=== PATIENT | male | born 1990 | race Caucasian/White ===

== ENCOUNTER 2016-12-28 16:53 | Emergency (ER) | payer OTHER ==
[2016-12-28 17:28] VITALS: RESP 18
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
[2016-12-28 19:14] VITALS: BP 132/76; PULSE 87; TEMP 98.4
== END 2016-12-28 19:14 | disposition home or self-care (01) ==
LOC: EC 16:53
DX: S00.33XA Contusion of nose, initial encounter (principal); S83.91XA Sprain of unspecified site of right knee, initial encounter; Y04.0XXA Assault by unarmed brawl or fight, initial encounter; Z88.5 Allergy status to narcotic agent; Z88.8 Allergy status to other drugs, medicaments and biological substances; F17.200 Nicotine dependence, unspecified, uncomplicated
CPT/HCPCS: 70450; 70486; 99284

== ENCOUNTER 2017-05-22 02:13 | Emergency (ER) | payer OTHER ==
[2017-05-22 02:21] VITALS: BP 121/68; PULSE 77; RESP 18; TEMP 97.6
[2017-05-22] MEDS ORDERED: AMOXIC-POT CLAV 875MG STARTER 2 EACH TABLET PO STA (02:36)
[2017-05-22] MEDS ORDERED: IBUPROFEN 600 MG STARTER PACK 4 TAB BTL PO STA (02:36)
--- NOTE | 2017-05-22 02:43 | ED ---
General Adult HPI - General Chief complaint: Headache Time Seen by Provider: 05/22/17 02:32 Source: patient, RN notes reviewed Mode of arrival: ambulatory Limitations: no limitations - History of Present Illness Initial comments: 26-year-old male presents emergency Department chief complaint of sinus aches use. Patient states that he has had nasal congestion ear pain and sinus pain for the last 2 weeks. Patient states his sinus pressure seem to worse over the last week or so. Patient denies any nausea vomiting. Patient states that it radiates causing him to have a headache with this as well. Patient denies any neck pain. Patient denies any high fevers. Patient states that it just keeps getting worse he thought that he should be seen. Patient notes that now it just seems to be stopped. Achy it out. Patient states she was concerned due to his continued symptoms so he thought he should be evaluated.Patient denies any recent fever, chills, shortness of breath, chest pain, back pain, abdominal pain, nausea vomiting, numbness or tingling, dysuria or hematuria, constipation or diarrhea, visual changes, or any other current symptoms. - Related Data Previous Rx's Medication Instructions Recorded Amoxicillin/Potassium Clav 1 tab PO Q12HR #20 tab 05/22/17 [Augmentin 875-125 Tablet] Ibuprofen [Motrin] 600 mg PO Q6HR PRN #20 tab 05/22/17 Allergies Allergy/AdvReac Type Severity Reaction Status Date / Time amphetamine aspartate Allergy Unknown Verified 05/22/17 02:21 [From Adderall] amphetamine sulfate Allergy Unknown Verified 05/22/17 02:21 [From Adderall] codeine Allergy Unknown Verified 05/22/17 02:21 dextroamphetamine saccharate Allergy Unknown Verified 05/22/17 02:21 [From Adderall] dextroamphetamine sulfate Allergy Unknown Verified 05/22/17 02:21 [From Adderall] hydrocodone bitartrate Allergy Unknown Verified 05/22/17 02:21 [From Vicodin] ziprasidone HCl [From Geodon] Allergy Unknown Verified 05/22/17 02:21 ziprasidone mesylate Allergy Unknown Verified 05/22/17 02:21 [From Geodon] Review of Systems ROS Statement: Those systems with pertinent positive or pertinent negative responses have been documented in the HPI. ROS Other: All systems not noted in ROS Statement are negative. Past Medical History Past Medical History: Asthma, Osteoarthritis (OA) Additional Past Medical History / Comment(s): cerebral cyst, hypoglycemia dent in chest per pt History of Any Multi-Drug Resistant Organisms: None Reported Past Surgical History: No Surgical Hx Reported Past Psychological History: ADD/ADHD, Schizoaffective Disorder, Schizophrenia Smoking Status: Current every day smoker Past Alcohol Use History: Occasional Past Drug Use History: Marijuana General Exam - General Exam Comments Initial Comments: General exam: Alert, active, comfortable in no apparent distress Head: Normocephalic, tenderness along the maxillary sinuses Eyes: Normal reaction of pupils, equal size, normal range of extraocular motion Ears: normal external ear canals, pink tympanic membranes with normal cone of light Nose: clear with pink turbinates Throat: no erythema or exudates with normal sized tonsils Neck: no masses, no nuchal rigidity Chest: no chest wall deformity Lungs: equal air entry with no crackles or wheeze CVS: S1 and S2 normal with no audible mumurs, regular rhythm Abdomen: no hepatosplenomegaly, normal bowel sounds, no guarding or rigidity Spine: no scoliosis or deformity Skin: no rashes Neurological: No focal deficits, tone is normal in all 4 extremities Limitations: no limitations Course Vital Signs 05/22/17 02:19 Temperature 97.6 F Pulse Rate 77 Respiratory 18 Rate Blood Pressure 121/68 O2 Sat by Pulse 98 Oximetry Medical Decision Making - Medical Decision Making 26-year-old male presents to the emergency department with a chief complaint of sinusitis. This and the symptoms for approximately 2 weeks. This and was patient antibiotics. We discussed follow-up return parameters all patient's questions stated he understood and is in agreement discharged home. Disposition Clinical Impression: Acute sinusitis Disposition: HOME SELF-CARE Condition: Stable Instructions: Sinusitis (ED) Additional Instructions: Please use medication as discussed. Please follow up with family doctor if symptoms have not improved over the next two days. Please return to the emergency room if your symptoms increase or worsen or for any other concerns. Prescriptions: Amoxicillin/Potassium Clav [Augmentin 875-125 Tablet] 1 tab PO Q12HR #20 tab Ibuprofen [Motrin] 600 mg PO Q6HR PRN #20 tab PRN Reason: Pain Referrals: Jamila Aragon MD [STAFF PHYSICIAN] - 1-2 days Time of Disposition: 02:43
== END 2017-05-22 03:00 | disposition home or self-care (01) ==
LOC: EC 02:13
DX: J01.90 Acute sinusitis, unspecified (principal); F17.200 Nicotine dependence, unspecified, uncomplicated; Z88.8 Allergy status to other drugs, medicaments and biological substances; Z88.5 Allergy status to narcotic agent
CPT/HCPCS: 99283

== ENCOUNTER 2017-06-23 02:32 | Emergency (ER) | payer OTHER ==
[2017-06-23 02:43] VITALS: TEMP 98
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
--- NOTE | 2017-06-23 03:34 | XR ---
EXAM: XR Chest, 2 Views CLINICAL HISTORY: Reason: Chest Pain TECHNIQUE: Frontal and lateral views of the chest. COMPARISON: Chest radiograph 04/11/2016 FINDINGS: Lungs: Lungs are clear. Pleural space: Mild chronic biapical pleural thickening. No evidence of pleural effusion or pneumothorax. Heart: Heart size is within normal limits. Mediastinum: Mediastinal structures are unremarkable. Bones/joints: Imaged bony thorax is unremarkable. Other findings: No significant change since 04/11/2016. IMPRESSION: No evidence of active chest disease.
[2017-06-23 03:58] LABS: Basophils % (A) 1 %; CH 31.6; CHCM 36.2; Eosinophils # (A) 0.3 k/uL (0-0.7); Eosinophils % (A) 4 %; HCT 42.8 % (39.0-53.0); HDW 2.65; HGB 15.7 gm/dL (13.0-17.5); Luc # (Auto) 0.16; Luc % (Auto) 2; Lymphocytes # (A) 2.5 k/uL (1.0-4.8); Lymphocytes % (A) 29 %; MCH 32.2 pg (25.0-35.0); MCHC 36.7 g/dL (31.0-37.0); MCV 87.6 fL (80.0-100.0); Mean Platelet Volume 8.1; Monocytes # (A) 0.5 k/uL (0-1.0); Monocytes % (A) 6 %; Neutrophils # (A) 5.1 k/uL (1.3-7.7); Neutrophils % (A) 59 %; RBC 4.89 m/uL (4.30-5.90); RDW 12.8 % (11.5-15.5); WBC 8.6 k/uL (3.8-10.6); WBC (Perox) 8.28
[2017-06-23 04:09] LABS: ALT 30 U/L (21-72); AST 17 U/L (17-59); Alkaline Phosphatase 66 U/L (38-126); Anion Gap 11 mmol/L; Blood Urea Nitrogen 14 mg/dL (9-20); Calcium 9.5 mg/dL (8.4-10.2); Carbon Dioxide 21 mmol/L (22-30); Chloride 107 mmol/L (98-107); Glucose 86 mg/dL (74-99); INR 1.1 (<1.2); Non-African American GFR(MDRD) >60 (>60 ml/min/1.73 sqM); Partial Thromboplastin Time 30.5 sec (22.0-30.0); Potassium 4.1 mmol/L (3.5-5.1); Prothrombin Time 10.8 sec (9.0-12.0); Sodium 139 mmol/L (137-145); Total Bilirubin 0.3 mg/dL (0.2-1.3); Total Protein 6.6 g/dL (6.3-8.2)
[2017-06-23 04:17] LABS: Creatine Kinase 61 U/L (55-170)
[2017-06-23 04:30] LABS: Creatine Kinase MB 0.4 ng/mL (0.0-2.4); Troponin I <0.012 ng/mL (0.000-0.034)
[2017-06-23 05:02] VITALS: BP 108/58; PULSE 78; RESP 16
== END 2017-06-23 05:01 | disposition home or self-care (01) ==
LOC: EC 02:32
DX: R07.9 Chest pain, unspecified (principal); R06.02 Shortness of breath; R20.0 Anesthesia of skin; F17.200 Nicotine dependence, unspecified, uncomplicated; Z88.5 Allergy status to narcotic agent; Z88.8 Allergy status to other drugs, medicaments and biological substances
CPT/HCPCS: 36415; 71020; 80053; 82550; 82553; 83735; 84484; 85025; 85379; 85610; 85730; 93005; 99285

== ENCOUNTER 2018-12-24 21:46 | Emergency (ER) | payer OTHER ==
[2018-12-24 21:55] VITALS: BP 134/84; PULSE 73; RESP 20; TEMP 98.5
--- NOTE | 2018-12-24 22:58 | XR ---
EXAM: XR Left Foot Complete, 3 or More Views CLINICAL HISTORY: ITS.REASON XR Reason: Pain TECHNIQUE: Frontal, lateral and oblique views of the left foot. COMPARISON: None. FINDINGS: Bones/joints: Unremarkable. No acute fracture. No dislocation. Soft tissues: Unremarkable. No radiopaque foreign body. IMPRESSION: No acute osseous abnormality.
--- NOTE | 2018-12-24 23:20 | ED ---
Lower Extremity Injury HPI - General Source: patient, family, RN notes reviewed, old records reviewed Mode of arrival: ambulatory Limitations: no limitations <Debra Vargas - Last Filed: 12/25/18 05:16> <Saskia Lopez - Last Filed: 12/25/18 21:13> - General Chief Complaint: Extremity Injury, Lower Stated Complaint: Foot pain Time Seen by Provider: 12/24/18 22:00 - History of Present Illness Initial Comments: 28 year old male with L dorsum foot pain without injury. Patient states that he has pain with ambulation now. Patient reports marixa the may have landed wrong on his foot a few days ago. Sxs started 2 days ago. (Debra Vargas) - Related Data Home Medications Medication Instructions Recorded Confirmed Ibuprofen [Motrin Ib] 400 mg PO Q6H PRN 12/24/18 12/24/18 Previous Rx's Medication Instructions Recorded Ibuprofen [Motrin] 600 mg PO Q8HR PRN #20 tab 12/24/18 Allergies Allergy/AdvReac Type Severity Reaction Status Date / Time amphetamine aspartate Allergy Unknown Verified 12/24/18 22:20 [From Adderall] amphetamine sulfate Allergy Unknown Verified 12/24/18 22:20 [From Adderall] codeine Allergy Unknown Verified 12/24/18 22:20 dextroamphetamine saccharate Allergy Unknown Verified 12/24/18 22:20 [From Adderall] dextroamphetamine sulfate Allergy Unknown Verified 12/24/18 22:20 [From Adderall] hydrocodone bitartrate Allergy Unknown Verified 12/24/18 22:20 [From Vicodin] ziprasidone HCl [From Geodon] Allergy Unknown Verified 12/24/18 22:20 ziprasidone mesylate Allergy Unknown Verified 12/24/18 22:20 [From Geodon] acetaminophen [From Tylenol] AdvReac Unknown UPSET Verified 12/24/18 22:20 STOMACH Review of Systems ROS Other: All systems not noted in ROS Statement are negative. <Debra Vargas - Last Filed: 12/25/18 05:16> ROS Other: All systems not noted in ROS Statement are negative. <Saskia Lopez P - Last Filed: 12/25/18 21:13> ROS Statement: Those systems with pertinent positive or pertinent negative responses have been documented in the HPI. Past Medical History Past Medical History: Asthma, Osteoarthritis (OA) Additional Past Medical History / Comment(s): cerebral cyst, hypoglycemia, dent in chest per pt History of Any Multi-Drug Resistant Organisms: None Reported Past Surgical History: No Surgical Hx Reported Past Psychological History: ADD/ADHD, Depression, Schizoaffective Disorder, Schizophrenia Smoking Status: Current every day smoker Past Alcohol Use History: Occasional Past Drug Use History: Marijuana <Debra Vargas - Last Filed: 12/25/18 05:16> General Exam Limitations: no limitations General appearance: alert, in no apparent distress Head exam: Present: atraumatic, normocephalic, normal inspection ENT exam: Present: normal exam, mucous membranes moist Neck exam: Present: normal inspection. Absent: tenderness, meningismus, lymphadenopathy Respiratory exam: Present: normal lung sounds bilaterally. Absent: respiratory distress, wheezes, rales, rhonchi, stridor Cardiovascular Exam: Present: regular rate, normal rhythm, normal heart sounds. Absent: systolic murmur, diastolic murmur, rubs, gallop, clicks GI/Abdominal exam: Present: soft, normal bowel sounds. Absent: distended, tenderness, guarding, rebound, rigid Left Knee exam: Present: normal inspection, full ROM Lower Leg exam: Present: normal inspection, full ROM Ankle exam: Present: normal inspection, full ROM Foot/Toe exam: Present: normal inspection, full ROM Neurovascular tendon exam: Present: no vascular compromise Gait: observed and normal Neurological exam: Present: alert, oriented X3, CN II-XII intact <Debra Vargas - Last Filed: 12/25/18 05:16> <Saskia Lopez P - Last Filed: 12/25/18 21:13> - General Exam Comments Initial Comments: wlell appearing 28 year old male, no distress. (Debra Vargas) Vital Signs 12/24/18 21:50 Temperature 98.5 F Pulse Rate 73 Respiratory 20 Rate Blood Pressure 134/84 O2 Sat by Pulse 98 Oximetry Medical Decision Making - Radiology Data Radiology results: report reviewed <Debra Vargas - Last Filed: 12/25/18 05:16> <Saskia Lopez P - Last Filed: 12/25/18 21:13> - Medical Decision Making 28 year old male presents today with CC of L foot pain, no trauma. Patient pain is over dorsum of foot, normal pulses 2 plus and normal sensation distally. Pain in worse between 2-3 metatarsal. Patient advised likely strian muscle. Discussed patient shoudl use arch suppor and motrin for pain and ice. ( Debra Vargas) I was available for consultation in the emergency department. The history and physical exam were done by the Midlevel Provider. Medical decision making was done by the Midlevel Provider. The Midlevel Provider did not contact me for this patient's care. I was not directly involved in this patient's care. (Saskia Lopez) - Radiology Data Normal foot XR. (Debra Vargas) Disposition Is patient prescribed a controlled substance at d/c from ED?: No Time of Disposition: 23:19 <Debra Vargas - Last Filed: 12/25/18 05:16> <Saskia Lopez - Last Filed: 12/25/18 21:13> Clinical Impression: Foot pain, left Disposition: HOME SELF-CARE Condition: Good Instructions (If sedation given, give patient instructions): Foot Sprain (ED) Additional Instructions: Make sure that you have proper shoes with good arch support. Patient should take Motrin Tylenol for pain. Ice the top of the foot. Return to the emergency department if any alarming signs or symptoms occur. Prescriptions: Ibuprofen [Motrin] 600 mg PO Q8HR PRN #20 tab PRN Reason: Pain Referrals: None,Stated [Primary Care Provider] - 1-2 days Blake Sung DO [Doctor of Osteopathic Medicine] - 1-2 days
== END 2018-12-24 23:28 | disposition home or self-care (01) ==
LOC: EC 21:46
DX: M79.672 Pain in left foot (principal); F17.200 Nicotine dependence, unspecified, uncomplicated; Z88.5 Allergy status to narcotic agent; Z88.6 Allergy status to analgesic agent; Z88.8 Allergy status to other drugs, medicaments and biological substances
CPT/HCPCS: 99284

== ENCOUNTER 2019-03-27 | Emergency (ER) | payer OTHER ==
[2019-03-27 00:24] VITALS: BP 117/70; PULSE 84; RESP 18; TEMP 97.3
[2019-03-27] MEDS ORDERED: MORPHINE SULFATE 4 MG/ML SYRINGE IM STA (01:00)
[2019-03-27] MEDS ORDERED: KETOROLAC 30 MG/ML 1 ML VIAL IM STA (01:00)
[2019-03-27] MEDS ORDERED: DIAZEPAM 5 MG/ML 2 ML INJ IM ONE (01:00)
[2019-03-27] MEDS ORDERED: ACET/COD 300 MG/30 MG STARTER PACK 6 TAB BTL PO STA (01:01)
[2019-03-27] MEDS ORDERED: CYCLOBENZAPRINE 10MG STARTER 3 TAB BTL PO STA (01:01)
--- NOTE | 2019-03-27 01:02 | ED ---
Back Pain HPI - General Chief Complaint: Back Pain/Injury Stated Complaint: Rt hip/back pain Time Seen by Provider: 03/27/19 00:48 Source: patient Limitations: no limitations - History of Present Illness Initial Comments: 28-year-old male patient presents to the emergency department today for evaluation of increased low back pain. Patient states that he has chronic low back pain. States since Thursday he had worsening of the pain with radiation down the left buttock. Patient denies any new injury. Denies any numbness and tingling to the lower extremities. States his pain is consistent with his usual back pain exacerbations. Denies any saddle anesthesia or loss of bowel or bladder control. He denies any fever or chills. Denies any difficulty with ambulation. States he has been taking Tylenol without much relief. Patient denies any recent rash, shortness breath, chest pain, abdominal pain, nausea, vomiting, diarrhea, constipation, dizziness, weakness, hematuria, dysuria, urinary urgency, urinary frequency, headache, visual changes, or any other complaints. - Related Data Home Medications Medication Instructions Recorded Confirmed Ibuprofen [Motrin Ib] 400 mg PO Q6H PRN 12/24/18 12/24/18 Previous Rx's Medication Instructions Recorded Ibuprofen [Motrin] 600 mg PO Q8HR PRN #20 tab 12/24/18 Cyclobenzaprine [Flexeril] 10 mg PO TID #15 tab 03/27/19 Ibuprofen [Motrin] 600 mg PO Q8HR PRN #30 tab 03/27/19 Allergies Allergy/AdvReac Type Severity Reaction Status Date / Time amphetamine aspartate Allergy Unknown Verified 12/24/18 22:20 [From Adderall] amphetamine sulfate Allergy Unknown Verified 12/24/18 22:20 [From Adderall] codeine Allergy Unknown Verified 12/24/18 22:20 dextroamphetamine saccharate Allergy Unknown Verified 12/24/18 22:20 [From Adderall] dextroamphetamine sulfate Allergy Unknown Verified 12/24/18 22:20 [From Adderall] hydrocodone bitartrate Allergy Unknown Verified 12/24/18 22:20 [From Vicodin] ziprasidone HCl [From Geodon] Allergy Unknown Verified 12/24/18 22:20 ziprasidone mesylate Allergy Unknown Verified 12/24/18 22:20 [From Geodon] acetaminophen [From Tylenol] AdvReac Unknown UPSET Verified 12/24/18 22:20 STOMACH Review of Systems ROS Statement: Those systems with pertinent positive or pertinent negative responses have been documented in the HPI. ROS Other: All systems not noted in ROS Statement are negative. Past Medical History Past Medical History: Asthma, Osteoarthritis (OA) Additional Past Medical History / Comment(s): cerebral cyst, hypoglycemia, dent in chest per pt , degenerative disc disease. History of Any Multi-Drug Resistant Organisms: None Reported Past Surgical History: No Surgical Hx Reported Past Psychological History: ADD/ADHD, Depression, Schizoaffective Disorder, Schizophrenia Smoking Status: Current every day smoker Past Alcohol Use History: Occasional Past Drug Use History: Marijuana General Exam Limitations: no limitations General appearance: alert, in no apparent distress, other (This well-developed, well-nourished adult male patient in no acute distress. Vital signs upon presentation are temperature 97.3F, pulse 84, respirations 18, blood pressure 117/70, pulse ox 98% on room air.) Eye exam: Present: normal appearance, PERRL, EOMI. Absent: scleral icterus, conjunctival injection, periorbital swelling ENT exam: Present: normal exam, normal oropharynx, mucous membranes moist Respiratory exam: Present: normal lung sounds bilaterally. Absent: respiratory distress, wheezes, rales, rhonchi, stridor Cardiovascular Exam: Present: regular rate, normal rhythm, normal heart sounds. Absent: systolic murmur, diastolic murmur, rubs, gallop, clicks GI/Abdominal exam: Present: soft, normal bowel sounds. Absent: distended, tenderness, guarding, rebound, rigid Back exam: Present: normal inspection. Absent: vertebral tenderness Neurological exam: Present: alert, oriented X3, CN II-XII intact, other (Strength in all 4 child is 5/5.) Psychiatric exam: Present: normal affect, normal mood Skin exam: Present: warm, dry, intact, normal color. Absent: rash Course Vital Signs 03/27/19 00:17 Temperature 97.3 F L Pulse Rate 84 Respiratory 18 Rate Blood Pressure 117/70 O2 Sat by Pulse 98 Oximetry Medical Decision Making - Medical Decision Making 28-year-old male patient presents to the emergency department today for evaluation of increased low back pain. Patient states he does have history of chronic low back pain. States pain is in his mid back and radiates down the right buttock. Neurovascular status is intact. There is no concerning symptoms for cauda equina. Patient will be treated with muscle relaxer, anti- inflammatory medication, and given a starter pack of Tylenol for codeine. He is instructed to follow-up with his primary care physician for further evaluation and any further medications. He is instructed to follow-up in one to 2 days. Return parameters discussed in detail. He verbalizes understanding and agrees with this plan. Disposition Clinical Impression: Acute exacerbation of chronic low back pain Disposition: HOME SELF-CARE Condition: Good Instructions (If sedation given, give patient instructions): Acute Low Back Pain (ED) Additional Instructions: Perform gentle range of motion exercises. Alternate ice and heat to the painful areas. Take medications as directed. Follow-up through primary care physician for any further medications and for further evaluation. Return to the emergency department immediately for any new, worsening, or concerning symptoms. Prescriptions: Cyclobenzaprine [Flexeril] 10 mg PO TID #15 tab Ibuprofen [Motrin] 600 mg PO Q8HR PRN #30 tab PRN Reason: Pain Is patient prescribed a controlled substance at d/c from ED?: No Referrals: None,Stated [Primary Care Provider] - 1-2 days Time of Disposition: 01:02
== END 2019-03-27 01:22 | disposition home or self-care (01) ==
LOC: EC
DX: G89.29 Other chronic pain (principal); M54.5 Low back pain; M25.552 Pain in left hip; F17.200 Nicotine dependence, unspecified, uncomplicated; Z87.39 Personal history of other diseases of the musculoskeletal system and connective tissue; Z88.8 Allergy status to other drugs, medicaments and biological substances; Z88.5 Allergy status to narcotic agent; Z88.6 Allergy status to analgesic agent
CPT/HCPCS: 99283; 96372 ×3; J2270; J3360; J1885

== ENCOUNTER 2020-04-19 23:13 | Emergency (ER) | payer OTHER ==
[2020-04-19 23:19] VITALS: BP 149/78; PULSE 93; RESP 18; TEMP 98.1
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
--- NOTE | 2020-04-20 00:22 | XR ---
EXAMINATION TYPE: XR foot complete RT DATE OF EXAM: 04/19/2020 COMPARISON: NONE HISTORY: Pain TECHNIQUE: 3 views FINDINGS: Metatarsals are intact. I see no fracture nor dislocation. Joint spaces are normal. There a re no erosions. IMPRESSION: Negative right foot exam.
== END 2020-04-20 01:37 | disposition home or self-care (01) ==
LOC: EC 23:13
DX: M79.674 Pain in right toe(s) (principal); F17.200 Nicotine dependence, unspecified, uncomplicated; Z88.5 Allergy status to narcotic agent; Z88.8 Allergy status to other drugs, medicaments and biological substances; Z88.6 Allergy status to analgesic agent
CPT/HCPCS: 99283

== ENCOUNTER 2021-11-22 17:27 | Emergency (ER) | payer OTHER ==
[2021-11-22 18:54] VITALS: BP 108/71; PULSE 74; RESP 18; TEMP 97.5
[2021-11-22] MEDS ORDERED: BACITRACIN OINT 1 EACH PACKET TOPICAL ONE (19:29)
[2021-11-22] MEDS ORDERED: IBUPROFEN 600 MG TAB PO STA (19:29)
[2021-11-22] MEDS ORDERED: LIDOCAINE 1% INJ 10MG/ML (20 ML MDV) SQ ONE (19:29)
--- NOTE | 2021-11-22 19:34 | ED ---
Wound/Laceration HPI - General Chief Complaint: Wound/Laceration Stated Complaint: R hand lac. Time Seen by Provider: 11/22/21 19:08 Source: patient Mode of arrival: ambulatory Limitations: no limitations - History of Present Illness Initial Comments: 31 year-old male patient presents to the emergency department for evaluation of right thumb laceration. States he was cutting his dog's flea collar with a knife when he slipped and cut his finger. Denies any numbness or tingling to the finger. Denies difficulty with movement. Denies any other injuries. Tetanus up to date over the last 2-3 years. He does not take blood thinners. Does not have diabetes. - Related Data Home Medications Medication Instructions Recorded Confirmed Ibuprofen [Motrin Ib] 400 mg PO Q6H PRN 12/24/18 12/24/18 Previous Rx's Medication Instructions Recorded Ibuprofen [Motrin] 600 mg PO Q8HR PRN #20 tab 12/24/18 Cyclobenzaprine [Flexeril] 10 mg PO TID #15 tab 03/27/19 Ibuprofen [Motrin] 600 mg PO Q8HR PRN #30 tab 03/27/19 Allergies Allergy/AdvReac Type Severity Reaction Status Date / Time amphetamine aspartate Allergy Unknown Verified 04/19/20 23:19 [From Adderall] amphetamine sulfate Allergy Unknown Verified 04/19/20 23:19 [From Adderall] codeine Allergy Unknown Verified 04/19/20 23:19 dextroamphetamine saccharate Allergy Unknown Verified 04/19/20 23:19 [From Adderall] dextroamphetamine sulfate Allergy Unknown Verified 04/19/20 23:19 [From Adderall] hydrocodone bitartrate Allergy Unknown Verified 04/19/20 23:19 [From Vicodin] ziprasidone HCl [From Geodon] Allergy Unknown Verified 04/19/20 23:19 ziprasidone mesylate Allergy Unknown Verified 04/19/20 23:19 [From Geodon] acetaminophen [From Tylenol] AdvReac Unknown UPSET Verified 04/19/20 23:19 STOMACH Review of Systems ROS Statement: Those systems with pertinent positive or pertinent negative responses have been documented in the HPI. ROS Other: All systems not noted in ROS Statement are negative. Past Medical History Past Medical History: Asthma, Osteoarthritis (OA) Additional Past Medical History / Comment(s): cerebral cyst, hypoglycemia, dent in chest per pt , degenerative disc disease. History of Any Multi-Drug Resistant Organisms: None Reported Past Surgical History: No Surgical Hx Reported Past Psychological History: ADD/ADHD, Depression, Schizoaffective Disorder, Schizophrenia Smoking Status: Current every day smoker Past Alcohol Use History: Occasional Past Drug Use History: Marijuana General Exam Limitations: no limitations General appearance: alert, in no apparent distress, other (This is a well- developed, well-nourished adult male in no acute distress.) Respiratory exam: Present: normal lung sounds bilaterally. Absent: respiratory distress, wheezes, rales, rhonchi, stridor Cardiovascular Exam: Present: regular rate, normal rhythm, normal heart sounds. Absent: systolic murmur, diastolic murmur, rubs, gallop, clicks Extremities exam: Present: full ROM, normal capillary refill, other (There is 4 cm laceration noted to the right thumb. Extends from the dorsal aspect to the ventral. Skin is otherwise pink, warm, dry. Cap refill less than 3 seconds. Full range of motion intact.). Absent: tenderness, pedal edema, joint swelling, calf tenderness Neurological exam: Present: alert, oriented X3, CN II-XII intact Psychiatric exam: Present: normal affect, normal mood Skin exam: Present: warm, dry, intact, normal color. Absent: rash Course Vital Signs 11/22/21 18:48 Temperature 97.5 F L Pulse Rate 74 Respiratory 18 Rate Blood Pressure 108/71 O2 Sat by Pulse 98 Oximetry Procedures - Laceration Laceration #1 Consent Obtained: verbal consent Indication: laceration Site: hand (Right thumb) Size (cm): 5 Description: linear Depth: simple, single layer Anesthetic Used: lidocaine 1% Anesthesia Technique: local infiltration, nerve block Amount (mls): 6 Pre-repair: irrigated extensively Type of Sutures: nylon Size of Sutures: 5-0 Number of Sutures: 6 Technique: simple, interrupted Patient Tolerated Procedure: well, no complications Medical Decision Making - Medical Decision Making 31-year-old male patient presented for evaluation of right thumb laceration. Physical examination did reveal 5 cm laceration. Wound was repaired and cleanse as documented. X-ray was negative for any bony abnormality. We did discuss wound care center symptoms of infection, and suture removal. He is instructed follow up with his primary care physician as needed. Return parameters discussed in detail. He verbalizes understanding and agrees with this plan. My attending is Dr. Scherer. Disposition Clinical Impression: Laceration of right thumb Disposition: HOME SELF-CARE Condition: Good Instructions (If sedation given, give patient instructions): Care For Your Stitches (ED), Laceration (ED) Additional Instructions: Keep wound clean and dry. Cleanse twice daily with warm water and antibacterial soap. The initial dressing in place for 24 hours unless it becomes soaked. Return in 7 days to have the stitches removed. Follow-up with your primary care physician for recheck as needed. Return for any new, worsening, or concerning symptoms. Is patient prescribed a controlled substance at d/c from ED?: No Referrals: None,Stated [Primary Care Provider] - 1-2 days Time of Disposition: 21:29
--- NOTE | 2021-11-22 20:10 | XR ---
EXAMINATION TYPE: XR finger RT DATE OF EXAM: 11/22/2021 7:46 PM INDICATION: Patient age:Male; 31 years old; Reason for study: Thumb laceration/injury; [facility]. COMPARISON: None TECHNIQUE: 3 views of the right first digit were obtained. FINDINGS: Skin defect noted of the first digit palmar surface. No evidence for radiopaque foreign bod y the osseous structures are intact. IMPRESSION: Laceration/defect without evidence of radiopaque foreign body, no evidence of fracture.
== END 2021-11-22 21:44 | disposition home or self-care (01) ==
LOC: EC 17:27
DX: S61.011A Laceration without foreign body of right thumb without damage to nail, initial encounter (principal); J45.909 Unspecified asthma, uncomplicated; M19.90 Unspecified osteoarthritis, unspecified site; F32.A Depression, unspecified; F90.9 Attention-deficit hyperactivity disorder, unspecified type; F20.9 Schizophrenia, unspecified; F17.200 Nicotine dependence, unspecified, uncomplicated; F12.90 Cannabis use, unspecified, uncomplicated; Z72.89 Other problems related to lifestyle; W26.0XXA Contact with knife, initial encounter
CPT/HCPCS: 73140; 99283; 12042; J2001

== ENCOUNTER 2022-08-16 20:43 | Emergency (ER) | payer OTHER ==
[2022-08-16 21:14] VITALS: BP 122/81; PULSE 71; RESP 18; TEMP 97.8
[2022-08-17] MEDS ORDERED: METOCLOPRAMIDE 5 MG/ML 2 ML VIAL IVP STA (02:58)
[2022-08-17] MEDS ORDERED: SODIUM CHLORIDE 0.9% 1,000 ML IV STA (02:58)
[2022-08-17] MEDS ORDERED: diphenhydrAMINE 50 MG/ML 1 ML VIAL IVP STA (02:59)
--- NOTE | 2022-08-17 03:24 | ED ---
Headache HPI <Fortunato Degroot Gosia - Last Filed: 08/17/22 05:31> - General Source: RN notes reviewed Mode of arrival: ambulatory Limitations: no limitations - History of Present Illness MD Complaint: headache <Tha Murillo - Last Filed: 08/17/22 18:15> - General Chief Complaint: Headache Stated Complaint: Migraine,dizzy Time Seen by Provider: 08/17/22 02:51 - History of Present Illness Initial Comments: This is a pleasant 26-year-old male who comes to the emergency department complaining of a throbbing headache which is 8/10 in intensity. Patient states he does get recurrent headaches but usually they're only about 4 out of 10 in intensity. He states that this headache is been present for 2 days. It is associated with some nausea and vomiting as well. Patient also states this is out of the ordinary for his headaches. Patient has a history of an arachnoid cyst and apparently this is at risk to black cerebral spinal fluid. It sounds as if the patient has had neurology evaluation and was even offered ventriculoperitoneal shunts at one time. no fever or chills, no changes in vision or hearing, no sore throat or difficulty with speech, no neck pain, no chest pain or shortness of breath, no abdominal pain, no nausea or vomiting, no changes in urination or bowel movements, no numbness or tingling, no extremity pain, no skin rashes or lesions. Past medical, surgical, social, and family history reviewed. (Tha Murillo) - Related Data Home Medications Medication Instructions Recorded Confirmed Ibuprofen [Motrin Ib] 400 mg PO Q6H PRN 12/24/18 12/24/18 Previous Rx's Medication Instructions Recorded Ibuprofen [Motrin] 600 mg PO Q8HR PRN #20 tab 12/24/18 Cyclobenzaprine [Flexeril] 10 mg PO TID #15 tab 03/27/19 Ibuprofen [Motrin] 600 mg PO Q8HR PRN #30 tab 03/27/19 Allergies Allergy/AdvReac Type Severity Reaction Status Date / Time amphetamine aspartate Allergy Unknown Verified 08/16/22 21:14 [From Adderall] amphetamine sulfate Allergy Unknown Verified 08/16/22 21:14 [From Adderall] codeine Allergy Unknown Verified 08/16/22 21:14 dextroamphetamine saccharate Allergy Unknown Verified 08/16/22 21:14 [From Adderall] dextroamphetamine sulfate Allergy Unknown Verified 08/16/22 21:14 [From Adderall] hydrocodone bitartrate Allergy Unknown Verified 08/16/22 21:14 [From Vicodin] ziprasidone HCl [From Geodon] Allergy Unknown Verified 08/16/22 21:14 ziprasidone mesylate Allergy Unknown Verified 08/16/22 21:14 [From Geodon] acetaminophen [From Tylenol] AdvReac Unknown UPSET Verified 08/16/22 21:14 STOMACH Review of Systems ROS Other: All systems not noted in ROS Statement are negative. <Fortunato Degroot - Last Filed: 08/17/22 05:31> ROS Other: All systems not noted in ROS Statement are negative. <Tha Murillo - Last Filed: 08/17/22 18:15> ROS Statement: Those systems with pertinent positive or pertinent negative responses have been documented in the HPI. Past Medical History Past Medical History: Asthma, Osteoarthritis (OA) Additional Past Medical History / Comment(s): cerebral cyst, hypoglycemia, dent in chest per pt , degenerative disc disease, vertigo History of Any Multi-Drug Resistant Organisms: None Reported Past Surgical History: No Surgical Hx Reported Past Psychological History: ADD/ADHD, Depression, Schizoaffective Disorder, Schizophrenia Smoking Status: Current every day smoker Past Alcohol Use History: Occasional Past Drug Use History: Marijuana <Tha Murillo - Last Filed: 08/17/22 18:15> General Exam Limitations: no limitations General appearance: alert, in distress Head exam: Present: atraumatic, normocephalic, normal inspection Eye exam: Present: normal appearance, PERRL, EOMI. Absent: scleral icterus, conjunctival injection, periorbital swelling ENT exam: Present: normal exam, normal oropharynx, mucous membranes moist, TM's normal bilaterally, normal external ear exam. Absent: mucous membranes dry Neck exam: Present: normal inspection. Absent: tenderness, meningismus, lymphadenopathy Respiratory exam: Present: normal lung sounds bilaterally. Absent: respiratory distress, wheezes, rales, rhonchi, stridor Cardiovascular Exam: Present: regular rate, normal rhythm, normal heart sounds. Absent: systolic murmur, diastolic murmur, rubs, gallop, clicks GI/Abdominal exam: Present: soft. Absent: distended, tenderness, guarding, rebound, rigid Extremities exam: Present: normal inspection, full ROM, normal capillary refill. Absent: tenderness, pedal edema, joint swelling, calf tenderness Back exam: Present: normal inspection. Absent: rash noted Neurological exam: Present: alert, oriented X3, CN II-XII intact, normal gait. Absent: altered, abnormal gait, motor sensory deficit Expanded Patient oriented to: Present: person, place, time Speech: Present: fluid speech Cranial nerves: EOM's Intact: Normal, Gag Reflex: Normal, Tongue Deviation: Normal, Nystagmus: Normal, Facial Sensation: Normal, Facial Palsy with Forehead Movement: Normal, Facial Palsy without Forehead Movement: Normal Cerebellar function: Finger to Nose: Normal Motor strength exam: RUE: 5, LUE: 5, RLE: 5, LLE: 5 Eye Response: (4) open spontaneously Motor Response: (6) obeys commands Verbal Response: (5) oriented Melisa Total: 15 Psychiatric exam: Present: normal affect, normal mood Skin exam: Present: warm, dry, intact, normal color. Absent: rash <Tha Murillo - Last Filed: 08/17/22 18:15> - General Exam Comments Initial Comments: Patient appears to be in mild distress at time I'm seeing him. Cranial nerves II through XII are intact. Patient is alert and oriented 4. Does not appear to be ill or toxic. (Tha Murillo) Course Vital Signs 08/16/22 21:12 Temperature 97.8 F Pulse Rate 71 Respiratory 18 Rate Blood Pressure 122/81 O2 Sat by Pulse 98 Oximetry Medical Decision Making - Lab Data Result diagrams: 08/17/22 04:02 08/17/22 04:02 <Fortunato Degroot - Last Filed: 08/17/22 05:31> - Lab Data Result diagrams: 08/17/22 04:02 08/17/22 04:02 <Tha Murillo - Last Filed: 08/17/22 18:15> - Medical Decision Making I did review the patient's computed tomography scan from 2016. Patient did have a large arachnoid cyst in the area of the right frontal lobe at that time. Going to order a CT of the brain/CTA head and neck for further evaluation of the patient's symptomatology. We'll treat with antiemetics and Benadryl at this time. We'll consider pain medication however the patient has multiple sensitivities. Patient will be endorsed to the ED attending physician, Dr. Degroot, at 4 AM for further evaluation and disposition. Currently awaiting laboratory investigations and computed tomography scan. (Tha Murillo) - Lab Data Lab Results 08/17/22 08/17/22 Range/Units 04:02 04:02 WBC 11.2 H (3.8-10.6) k/uL RBC 4.93 (4.30-5.90) m/uL Hgb 14.9 (13.0-17.5) gm/dL Hct 42.4 (39.0-53.0) % MCV 85.9 (80.0-100.0) fL MCH 30.1 (25.0-35.0) pg MCHC 35.1 (31.0-37.0) g/dL RDW 12.9 (11.5-15.5) % Plt Count 259 (150-450) k/uL MPV 9.7 Neutrophils % 66 % Lymphocytes % 23 % Monocytes % 4 % Eosinophils % 5 % Basophils % 1 % Neutrophils # 7.4 (1.3-7.7) k/uL Lymphocytes # 2.6 (1.0-4.8) k/uL Monocytes # 0.4 (0-1.0) k/uL Eosinophils # 0.5 (0-0.7) k/uL Basophils # 0.1 (0-0.2) k/uL Sodium 138 (137-145) mmol/L Potassium 3.8 (3.5-5.1) mmol/L Chloride 104 (98-107) mmol/L Carbon Dioxide 25 (22-30) mmol/L Anion Gap 9 mmol/L BUN 9 (9-20) mg/dL Creatinine 0.72 (0.66-1.25) mg/dL Est GFR (CKD-EPI)AfAm >90 (>60 ml/min/1.73 sqM) Est GFR (CKD-EPI)NonAf >90 (>60 ml/min/1.73 sqM) Glucose 90 (74-99) mg/dL Calcium 9.0 (8.4-10.2) mg/dL Disposition Is patient prescribed a controlled substance at d/c from ED?: No <Fortunato Degroot - Last Filed: 08/17/22 05:31> <Tha Murillo - Last Filed: 08/17/22 18:15> Clinical Impression: Headache Disposition: HOME SELF-CARE Condition: Good Instructions (If sedation given, give patient instructions): Acute Headache (ED) Referrals: None,Stated [Primary Care Provider] - 1-2 days
[2022-08-17] MEDS ORDERED: LORazepam 2 MG/ML INJ IV STA (04:17)
[2022-08-17 04:21] LABS: Basophils # (A) 0.1 k/uL (0-0.2); Basophils % (A) 1 %; Eosinophils # (A) 0.5 k/uL (0-0.7); Eosinophils % (A) 5 %; HCT 42.4 % (39.0-53.0); HGB 14.9 gm/dL (13.0-17.5); Lymphocytes # (A) 2.6 k/uL (1.0-4.8); Lymphocytes % (A) 23 %; MCH 30.1 pg (25.0-35.0); MCHC 35.1 g/dL (31.0-37.0); MCV 85.9 fL (80.0-100.0); Mean Platelet Volume 9.7; Monocytes # (A) 0.4 k/uL (0-1.0); Monocytes % (A) 4 %; Neutrophils # (A) 7.4 k/uL (1.3-7.7); Neutrophils % (A) 66 %; Platelet Count 259 k/uL (150-450); RBC 4.93 m/uL (4.30-5.90); RDW 12.9 % (11.5-15.5); WBC 11.2 k/uL (3.8-10.6)
[2022-08-17 04:34] LABS: African American GFR (CKD) >90 (>60 ml/min/1.73 sqM); Anion Gap 9 mmol/L; Blood Urea Nitrogen 9 mg/dL (9-20); Carbon Dioxide 25 mmol/L (22-30); Chloride 104 mmol/L (98-107); Glucose 90 mg/dL (74-99); Non-African American GFR(CKD) >90 (>60 ml/min/1.73 sqM); Potassium 3.8 mmol/L (3.5-5.1); Sodium 138 mmol/L (137-145)
--- NOTE | 2022-08-17 05:19 | CT ---
EXAMINATION TYPE: CT brain wo con DATE OF EXAM: 08/17/2022 COMPARISON: 12/28/2016 HISTORY: headache hx of subarachnoid cyst CT DLP: 1135.9 mGycm Automated exposure control for dose reduction was used. Images of the brain obtained with no contrast. Ventricles have normal size. There is no mass effect or midline shift. No sign of intracranial hemorr laura. The calvarium is intact. There is large area of fluid density in the left posterior frontal lob e convexity. This measures 5 cm in width and 3 cm in thickness. No adjacent cerebral edema. This coul d be arachnoid cyst. IMPRESSION: Arachnoid cyst left posterior frontal lobe convexity with no change compared to the old exam. No acut e intracranial abnormality.
--- NOTE | 2022-08-17 05:23 | CT ---
EXAMINATION TYPE: CT angio head neck DATE OF EXAM: 08/17/2022 COMPARISON: None HISTORY: headache .hx of subarachnoid cyst CT DLP: 784.4 mGycm Automated exposure control for dose reduction was used. CONTRAST: Performed with IV Contrast, patient injected with 65 mL of Isovue 370. Images obtained from the aortic arch to the vertex of the brain with the IV contrast. There are Three -D postprocessed images. There is normal branching pattern of the great vessels on the aortic arch. There is bilateral arteria l flow in the subclavian arteries. There is arterial flow in the common internal and external carotid arteries bilaterally. There is wide patency of the carotid artery bifurcations. There is arterial fl ow in both vertebral arteries. There is arterial flow in the vertebral basilar artery system. Right v ertebral artery is larger than the left. There is no evidence of carotid or vertebral artery aneurysm or dissection. There is arterial flow in the anterior middle and posterior cerebral arteries bilaterally. No mass ef fect. No sign of intracranial aneurysm or neovascularity. There is normal enhancement of the venous s inuses. No evidence of intracranial arterial stenosis. IMPRESSION: Negative CT angiogram of the neck. Negative CT angiogram of the brain.
== END 2022-08-17 06:10 | disposition home or self-care (01) ==
LOC: EC 20:43
DX: R51.9 Headache, unspecified (principal); J45.909 Unspecified asthma, uncomplicated; F17.200 Nicotine dependence, unspecified, uncomplicated; Z88.8 Allergy status to other drugs, medicaments and biological substances; Z88.6 Allergy status to analgesic agent; Z88.3 Allergy status to other anti-infective agents
CPT/HCPCS: 36415; 80048; 85025; 70496; 70450; 70498; 99284; 96374; 96375; 96361; J2060; J1200; J2765; Q9967

== ENCOUNTER 2022-08-29 00:21 | Emergency (ER) | payer OTHER ==
[2022-08-29 00:31] VITALS: TEMP 98
[2022-08-29] MEDS ORDERED: ACETAMINOPHEN TAB 500 MG TAB PO STA (00:39)
[2022-08-29] MEDS ORDERED: IBUPROFEN 600 MG TAB PO STA (00:39)
--- NOTE | 2022-08-29 00:42 | ED ---
Skin/Abscess/FB HPI - General Chief complaint: Skin/Abscess/Foreign Body Stated complaint: Right Arm Pain Time Seen by Provider: 08/29/22 00:35 Source: patient, RN notes reviewed Mode of arrival: ambulatory - History of Present Illness Initial comments: This is a pleasant 31-year-old male who was seen here about 2 weeks ago and ended up having an IV in his right antecubital fossa. Patient states that over the last day he has had development of pain to the area. Patient states the pain is radiating both distally and proximally. No headache, no fever or chills, no changes in vision or hearing, no sore throat or difficulty with speech, no neck pain, no chest pain or shortness of breath, no abdominal pain, no nausea or vomiting, no changes in urination or bowel movements, no numbness or tingling, no skin rashes or lesions. Past medical, surgical, social, and family history reviewed. - Related Data Home Medications Medication Instructions Recorded Confirmed Ibuprofen [Motrin Ib] 400 mg PO Q6H PRN 12/24/18 12/24/18 Previous Rx's Medication Instructions Recorded Ibuprofen [Motrin] 600 mg PO Q8HR PRN #20 tab 12/24/18 Cyclobenzaprine [Flexeril] 10 mg PO TID #15 tab 03/27/19 Ibuprofen [Motrin] 600 mg PO Q8HR PRN #30 tab 03/27/19 Ibuprofen [Motrin] 600 mg PO Q8HR PRN #30 tab 08/29/22 Allergies Allergy/AdvReac Type Severity Reaction Status Date / Time amphetamine aspartate Allergy Unknown Verified 08/29/22 00:31 [From Adderall] amphetamine sulfate Allergy Unknown Verified 08/29/22 00:31 [From Adderall] codeine Allergy Unknown Verified 08/29/22 00:31 dextroamphetamine saccharate Allergy Unknown Verified 08/29/22 00:31 [From Adderall] dextroamphetamine sulfate Allergy Unknown Verified 08/29/22 00:31 [From Adderall] hydrocodone bitartrate Allergy Unknown Verified 08/29/22 00:31 [From Vicodin] ziprasidone HCl [From Geodon] Allergy Unknown Verified 08/29/22 00:31 ziprasidone mesylate Allergy Unknown Verified 08/29/22 00:31 [From Geodon] acetaminophen [From Tylenol] AdvReac Unknown UPSET Verified 08/29/22 00:31 STOMACH Review of Systems ROS Statement: Those systems with pertinent positive or pertinent negative responses have been documented in the HPI. ROS Other: All systems not noted in ROS Statement are negative. Past Medical History Past Medical History: Asthma, Osteoarthritis (OA) Additional Past Medical History / Comment(s): cerebral cyst, hypoglycemia, dent in chest per pt , degenerative disc disease, vertigo History of Any Multi-Drug Resistant Organisms: None Reported Past Surgical History: No Surgical Hx Reported Past Psychological History: ADD/ADHD, Depression, Schizoaffective Disorder, Schizophrenia Smoking Status: Current every day smoker Past Alcohol Use History: Occasional Past Drug Use History: Marijuana General Exam - General Exam Comments Initial Comments: Vital signs reviewed, patient does not appear to be ill or toxic. General appearance: alert, anxious Head exam: Present: atraumatic, normocephalic, normal inspection Eye exam: Present: normal appearance, PERRL, EOMI. Absent: scleral icterus, conjunctival injection, periorbital swelling ENT exam: Present: normal exam, mucous membranes moist Neck exam: Present: normal inspection, full ROM. Absent: tenderness, meningismus, lymphadenopathy Respiratory exam: Present: normal lung sounds bilaterally. Absent: respiratory distress, wheezes, rales, rhonchi, stridor Cardiovascular Exam: Present: regular rate, normal rhythm, normal heart sounds. Absent: systolic murmur, diastolic murmur, rubs, gallop, clicks GI/Abdominal exam: Present: soft. Absent: distended, tenderness, guarding, rebound, rigid Extremities exam: Present: full ROM, tenderness (Patient has tenderness in the right antecubital fossa with a palpable superficial cord consistent with superficial thrombophlebitis. No axillary adenopathy. No lymphangitis. No erythema), normal capillary refill. Absent: pedal edema, joint swelling, calf tenderness Back exam: Present: normal inspection Neurological exam: Present: alert, oriented X3, CN II-XII intact Psychiatric exam: Present: normal affect, normal mood Skin exam: Present: warm, dry, intact, normal color. Absent: rash, erythema Course Vital Signs 08/29/22 00:28 Temperature 98 F Pulse Rate 92 Respiratory 18 Rate Blood Pressure 131/79 O2 Sat by Pulse 99 Oximetry Medical Decision Making - Medical Decision Making Patient likely has superficial thrombophlebitis affecting the right upper extremity. Venous Doppler ordered. Ibuprofen, acetaminophen. Disposition Clinical Impression: Superficial thrombophlebitis Narrative: Superficial thrombus phlebitis, right upper extremity Disposition: HOME SELF-CARE Condition: Good Instructions (If sedation given, give patient instructions): Superficial Thrombophlebitis (ED) Additional Instructions: Elevate the affected arm when possible. Apply warm compresses for 10-15 minutes at a time 4 times daily.Follow-up with your regular physician as directed. Return to the ER immediately if any symptoms worsen, new symptoms arise, or any other problems develop. Is patient prescribed a controlled substance at d/c from ED?: No Referrals: None,Stated [Primary Care Provider] - 1-2 days Time of Disposition: 02:19
--- NOTE | 2022-08-29 02:00 | US ---
EXAM: US Duplex Right Upper Extremity Veins CLINICAL HISTORY: ITS.REASON US Reason: Right arm pain TECHNIQUE: Real-time duplex ultrasound scan of the right upper extremity veins integrating B-mode two-dimensional vascular structure, Doppler spectral analysis, color flow Doppler imaging and compression. COMPARISON: No relevant prior studies available. FINDINGS: Deep veins: Unremarkable. No DVT in the internal jugular, subclavian, axillary, or brachial veins. The veins demonstrate normal color flow, are normally compressible, with normal phasic flow and/or augmentation response. Superficial veins: Unremarkable. No thrombus in the visualized basilic and cephalic veins. Soft tissues: No acute findings. IMPRESSION: Normal right upper extremity duplex venous ultrasound.
[2022-08-29] MEDS ORDERED: IBUPROFEN 600 MG STARTER PACK 4 TAB BTL PO STA (02:18)
[2022-08-29 02:52] VITALS: BP 141/67; PULSE 78; RESP 15
== END 2022-08-29 02:52 | disposition home or self-care (01) ==
LOC: EC 00:21
DX: I80.8 Phlebitis and thrombophlebitis of other sites (principal); J45.909 Unspecified asthma, uncomplicated; M19.90 Unspecified osteoarthritis, unspecified site; F17.200 Nicotine dependence, unspecified, uncomplicated; F12.90 Cannabis use, unspecified, uncomplicated; Z88.8 Allergy status to other drugs, medicaments and biological substances; Z88.5 Allergy status to narcotic agent
CPT/HCPCS: 99283

== ENCOUNTER 2022-10-18 18:00 | Emergency (ER) | payer OTHER ==
[2022-10-18] MEDS ORDERED: DEXAMETHASONE SOD PHOSPHATE 10 MG/ML 1 ML VIAL IM STA (18:24)
[2022-10-18] MEDS ORDERED: KETOROLAC 15 MG/ML 1 ML VIAL IVP STA (18:24)
[2022-10-18] MEDS ORDERED: SODIUM CHLORIDE 0.9% 1,000 ML IV STA (18:24)
[2022-10-18] MEDS ORDERED: DEXAMETHASONE SOD PHOSPHATE 10 MG/ML 1 ML VIAL IVP STA (18:39)
[2022-10-18 18:49] LABS: Basophils # (A) 0.1 k/uL (0-0.2); Basophils % (A) 1 %; Eosinophils # (A) 0.3 k/uL (0-0.7); Eosinophils % (A) 4 %; HCT 43.8 % (39.0-53.0); HGB 16.1 gm/dL (13.0-17.5); Lymphocytes # (A) 1.5 k/uL (1.0-4.8); Lymphocytes % (A) 22 %; MCH 31.4 pg (25.0-35.0); MCHC 36.7 g/dL (31.0-37.0); MCV 85.5 fL (80.0-100.0); Mean Platelet Volume 9.3; Monocytes # (A) 0.4 k/uL (0-1.0); Monocytes % (A) 6 %; Neutrophils # (A) 4.5 k/uL (1.3-7.7); Neutrophils % (A) 66 %; Platelet Count 275 k/uL (150-450); RBC 5.12 m/uL (4.30-5.90); RDW 12.9 % (11.5-15.5); WBC 6.8 k/uL (3.8-10.6)
--- NOTE | 2022-10-18 18:49 | ED ---
General Adult HPI - General Chief complaint: Chest Pain Stated complaint: Chest pain, DANIELLA Time Seen by Provider: 10/18/22 18:17 Source: patient Mode of arrival: ambulatory Limitations: no limitations - History of Present Illness Initial comments: Patient is a 31-year-old male with history of asthma presenting with chief complaint chest pain. Patient states that for the past few days he has had a burning sensation in the chest. Patient indicates that his on either side of his sternum when pointing. States the pain worsens with breathing. He admits to some nausea. He has not taken any supportive treatment at home. He admits to smoking marijuana. No abdominal pain, palpitations, weakness, fever, chills, vomiting, cough, congestion, sore throat, headache, neck pain or stiffness, vision or hearing changes, dizziness. Pain does not shoot down the arm or up the neck. - Related Data Home Medications Medication Instructions Recorded Confirmed No Known Home Medications 10/18/22 10/18/22 Allergies Allergy/AdvReac Type Severity Reaction Status Date / Time amphetamine aspartate Allergy Unknown Verified 10/18/22 19:09 [From Adderall] amphetamine sulfate Allergy Unknown Verified 10/18/22 19:09 [From Adderall] codeine Allergy Unknown Verified 10/18/22 19:09 dextroamphetamine saccharate Allergy Unknown Verified 10/18/22 19:09 [From Adderall] dextroamphetamine sulfate Allergy Unknown Verified 10/18/22 19:09 [From Adderall] hydrocodone bitartrate Allergy Unknown Verified 10/18/22 19:09 [From Vicodin] ziprasidone HCl [From Geodon] Allergy Unknown Verified 10/18/22 19:09 ziprasidone mesylate Allergy Unknown Verified 10/18/22 19:09 [From Geodon] acetaminophen [From Tylenol] AdvReac Unknown UPSET Verified 10/18/22 19:09 STOMACH Review of Systems ROS Statement: Those systems with pertinent positive or pertinent negative responses have been documented in the HPI. ROS Other: All systems not noted in ROS Statement are negative. Past Medical History Past Medical History: Asthma, Osteoarthritis (OA) Additional Past Medical History / Comment(s): cerebral cyst, hypoglycemia, dent in chest per pt , degenerative disc disease, vertigo History of Any Multi-Drug Resistant Organisms: None Reported Past Surgical History: No Surgical Hx Reported Past Psychological History: ADD/ADHD, Depression, Schizoaffective Disorder, Schizophrenia Smoking Status: Current every day smoker, Vaper Past Alcohol Use History: Occasional Past Drug Use History: Marijuana General Exam Limitations: no limitations General appearance: alert, in no apparent distress Head exam: Present: atraumatic, normocephalic, normal inspection Eye exam: Present: normal appearance Respiratory exam: Present: normal lung sounds bilaterally, chest wall tenderness. Absent: respiratory distress, wheezes, rales, rhonchi, stridor Cardiovascular Exam: Present: regular rate, normal rhythm, normal heart sounds. Absent: systolic murmur, diastolic murmur, rubs, gallop, clicks Neurological exam: Present: alert, oriented X3, CN II-XII intact Psychiatric exam: Present: normal affect, normal mood Skin exam: Present: warm, dry, intact, normal color. Absent: rash Course Vital Signs 10/18/22 10/18/22 10/18/22 18:12 18:45 20:16 Temperature 98 F 98.5 F Pulse Rate 72 75 Pulse Rate [ 80 Pipefitter ] Respiratory 18 20 Rate Blood Pressure 116/67 120/72 O2 Sat by Pulse 98 99 Oximetry EKG Findings - EKG Comments: EKG Findings:: Sinus rhythm ventricular rate 73. ND interval 176. QRS 88. QT 366. QTC 392. No ischemic changes. EKG interpreted by myself and my attending Medical Decision Making - Medical Decision Making Patient is a 31-year-old male presenting with chief complaint of chest pain. Patient states that he has had burning chest pain on either side of the sternum with a past 3 days. On examination the pain is reproducible. Patient states that the pain is worse with deep breaths. Heart and lungs are clear to auscultation. Lab work shows no leukocytosis or anemia. Coags are WNL. Troponin is less than 0.012. Sodium 136. Chloride 108. Remainder of CMP is negative. Amylase and lipase are WNL. He is negative for coronavirus influenza A and B. Chest x-ray shows no acute process, this is confirmed by my interpretation. EKG shows no ischemic changes. Patient responded well to Toradol and Decadron. Pain is likely due to costochondritis. Educated on supportive treatment at home with NSAIDs and he and ice when needed. Emphasized the importance of rest. Follow-up with PCP. Report back to ER with any new or worsening symptoms. Discussed return parameters and answered all questions. Patient conveyed verbal understanding and agreed to the plan. I discussed this case in detail with my attending Dr. Schrader - Lab Data Result diagrams: 10/18/22 18:38 10/18/22 18:38 Lab Results 10/18/22 10/18/22 10/18/22 Range/Units 18:38 18:38 18:38 WBC 6.8 (3.8-10.6) k/uL RBC 5.12 (4.30-5.90) m/uL Hgb 16.1 (13.0-17.5) gm/dL Hct 43.8 (39.0-53.0) % MCV 85.5 (80.0-100.0) fL MCH 31.4 (25.0-35.0) pg MCHC 36.7 (31.0-37.0) g/dL RDW 12.9 (11.5-15.5) % Plt Count 275 (150-450) k/uL MPV 9.3 Neutrophils % 66 % Lymphocytes % 22 % Monocytes % 6 % Eosinophils % 4 % Basophils % 1 % Neutrophils # 4.5 (1.3-7.7) k/uL Lymphocytes # 1.5 (1.0-4.8) k/uL Monocytes # 0.4 (0-1.0) k/uL Eosinophils # 0.3 (0-0.7) k/uL Basophils # 0.1 (0-0.2) k/uL PT 10.4 (9.0-12.0) sec INR 1.0 (<1.2) APTT 27.0 (22.0-30.0) sec Sodium 136 L (137-145) mmol/L Potassium 4.3 (3.5-5.1) mmol/L Chloride 108 H (98-107) mmol/L Carbon Dioxide 22 (22-30) mmol/L Anion Gap 6 mmol/L BUN 9 (9-20) mg/dL Creatinine 0.75 (0.66-1.25) mg/dL Est GFR (CKD-EPI)AfAm >90 (>60 ml/min/1.73 sqM) Est GFR (CKD-EPI)NonAf >90 (>60 ml/min/1.73 sqM) Glucose 93 (74-99) mg/dL Calcium 9.1 (8.4-10.2) mg/dL Magnesium 2.1 (1.6-2.3) mg/dL Total Bilirubin 0.5 (0.2-1.3) mg/dL AST 17 (17-59) U/L ALT 16 (4-49) U/L Alkaline Phosphatase 70 (38-126) U/L Troponin I (0.000-0.034) ng/mL Total Protein 6.6 (6.3-8.2) g/dL Albumin 4.1 (3.5-5.0) g/dL Amylase 56 (30-110) U/L Lipase 48 (23-300) U/L Coronavirus (PCR) (Not Detectd) Influenza Type A RNA (Not Detectd) Influenza Type B (PCR) (Not Detectd) 10/18/22 10/18/22 10/18/22 Range/Units 18:38 18:38 18:38 WBC (3.8-10.6) k/uL RBC (4.30-5.90) m/uL Hgb (13.0-17.5) gm/dL Hct (39.0-53.0) % MCV (80.0-100.0) fL MCH (25.0-35.0) pg MCHC (31.0-37.0) g/dL RDW (11.5-15.5) % Plt Count (150-450) k/uL MPV Neutrophils % % Lymphocytes % % Monocytes % % Eosinophils % % Basophils % % Neutrophils # (1.3-7.7) k/uL Lymphocytes # (1.0-4.8) k/uL Monocytes # (0-1.0) k/uL Eosinophils # (0-0.7) k/uL Basophils # (0-0.2) k/uL PT (9.0-12.0) sec INR (<1.2) APTT (22.0-30.0) sec Sodium (137-145) mmol/L Potassium (3.5-5.1) mmol/L Chloride (98-107) mmol/L Carbon Dioxide (22-30) mmol/L Anion Gap mmol/L BUN (9-20) mg/dL Creatinine (0.66-1.25) mg/dL Est GFR (CKD-EPI)AfAm (>60 ml/min/1.73 sqM) Est GFR (CKD-EPI)NonAf (>60 ml/min/1.73 sqM) Glucose (74-99) mg/dL Calcium (8.4-10.2) mg/dL Magnesium (1.6-2.3) mg/dL Total Bilirubin (0.2-1.3) mg/dL AST (17-59) U/L ALT (4-49) U/L Alkaline Phosphatase (38-126) U/L Troponin I <0.012 (0.000-0.034) ng/mL Total Protein (6.3-8.2) g/dL Albumin (3.5-5.0) g/dL Amylase (30-110) U/L Lipase (23-300) U/L Coronavirus (PCR) Not Detected (Not Detectd) Influenza Type A RNA Not Detected (Not Detectd) Influenza Type B (PCR) Not Detected (Not Detectd) Disposition Clinical Impression: Costochondral chest pain Disposition: HOME SELF-CARE Condition: Good Instructions (If sedation given, give patient instructions): Chest Pain (ED), Costochondritis (ED) Additional Instructions: All of with PCP. Report back to ER with any new or worsening symptoms. Alternate Motrin and Tylenol as needed for pain control. Rest and utilize hot and cold packs as needed. Is patient prescribed a controlled substance at d/c from ED?: No Referrals: None,Stated [Primary Care Provider] - 1-2 days Time of Disposition: 20:05
[2022-10-18 19:04] LABS: Prothrombin Time 10.4 sec (9.0-12.0)
--- NOTE | 2022-10-18 19:10 | XR ---
EXAMINATION TYPE: XR chest 2V DATE OF EXAM: 10/18/2022 6:58 PM COMPARISON: Chest x-ray 06/23/2017 TECHNIQUE: XR chest 2V . CLINICAL INDICATION:Male, 31 years old with history of Chest Pain; FINDINGS: Lungs/Pleura: There is no evidence of pleural effusion, focal consolidation, or pneumothorax. Pulmonary vascularity: Unremarkable. Heart/mediastinum: Cardiomediastinal silhouette is unremarkable. Musculoskeletal: No acute osseous pathology. IMPRESSION: No acute cardiopulmonary disease/process.
[2022-10-18 19:17] LABS: ALT 16 U/L (4-49); AST 17 U/L (17-59); African American GFR (CKD) >90 (>60 ml/min/1.73 sqM); Albumin 4.1 g/dL (3.5-5.0); Alkaline Phosphatase 70 U/L (38-126); Amylase 56 U/L (30-110); Anion Gap 6 mmol/L; Blood Urea Nitrogen 9 mg/dL (9-20); Calcium 9.1 mg/dL (8.4-10.2); Carbon Dioxide 22 mmol/L (22-30); Chloride 108 mmol/L (98-107); Glucose 93 mg/dL (74-99); Lipase 48 U/L (23-300); Magnesium 2.1 mg/dL (1.6-2.3); Non-African American GFR(CKD) >90 (>60 ml/min/1.73 sqM); Potassium 4.3 mmol/L (3.5-5.1); Sodium 136 mmol/L (137-145); Total Bilirubin 0.5 mg/dL (0.2-1.3); Total Protein 6.6 g/dL (6.3-8.2)
[2022-10-18] MEDS ORDERED: MAG HYDROX/AL HYDROX/SIMETH 30 ML, HYOSCYAMINE ELIXIR 10 ML, LIDOCAINE VISCOUS 2% 10 ML PO STA ×3 (19:48)
[2022-10-18 20:32] VITALS: BP 120/72; PULSE 75; RESP 20; TEMP 98.5
== END 2022-10-18 20:16 | disposition home or self-care (01) ==
LOC: EC 18:00
DX: R07.89 Other chest pain (principal); J45.909 Unspecified asthma, uncomplicated; F90.9 Attention-deficit hyperactivity disorder, unspecified type; F32.A Depression, unspecified; F17.290 Nicotine dependence, other tobacco product, uncomplicated; F17.200 Nicotine dependence, unspecified, uncomplicated; F12.90 Cannabis use, unspecified, uncomplicated; Z88.5 Allergy status to narcotic agent; Z88.8 Allergy status to other drugs, medicaments and biological substances; Z88.6 Allergy status to analgesic agent; Z20.822 Contact with and (suspected) exposure to COVID-19
CPT/HCPCS: 36415; 80053; 82150; 83690; 83735; 84484; 85025; 85610; 85730; 87502; 87635; 71046; 99285; 96374; 96375; 96361; J1100; J1885; 93005

== ENCOUNTER → 2023-01-22 | Outpatient (CLI) | payer OTHER ==
[2023-01-23 14:26] LABS: Cryptosporidium Antigen Negative (Negative)
== END | disposition home or self-care (01) ==
LOC: LABWHC1 14:05
PROVIDERS: ATTEND Family Medicine
DX: K52.9 Noninfective gastroenteritis and colitis, unspecified (principal)
CPT/HCPCS: 36415; 82272; 87045; 87046; 87328; 87329; 87425

== ENCOUNTER 2023-01-23 17:45 | Emergency (ER) | payer OTHER ==
[2023-01-23 18:33] VITALS: TEMP 98.5
[2023-01-23] MEDS ORDERED: KETOROLAC 15 MG/ML 1 ML VIAL IVP STA (19:38)
--- NOTE | 2023-01-23 19:42 | ED ---
General Adult HPI - General Chief complaint: Recheck/Abnormal Lab/Rx Stated complaint: abn labs Time Seen by Provider: 01/23/23 19:30 Source: patient, RN notes reviewed, old records reviewed Mode of arrival: ambulatory Limitations: no limitations - History of Present Illness Initial comments: this is a nontoxic-appearing 52-year-old male who presents alert and oriented 4, states was sent by Dr. Wyman his primary care doctor for reevaluation of CBC that showed an elevated white blood cell count of 21,000. -: month(s) Location: abdomen Severity scale (1-10): 4 Quality: stabbing Consistency: intermittent, now resolved - Related Data Home Medications Medication Instructions Recorded Confirmed No Known Home Medications 10/18/22 12/24/22 Allergies Allergy/AdvReac Type Severity Reaction Status Date / Time amphetamine aspartate Allergy Unknown Verified 01/23/23 18:33 [From Adderall] amphetamine sulfate Allergy Unknown Verified 01/23/23 18:33 [From Adderall] codeine Allergy Unknown Verified 01/23/23 18:33 dextroamphetamine saccharate Allergy Unknown Verified 01/23/23 18:33 [From Adderall] dextroamphetamine sulfate Allergy Unknown Verified 01/23/23 18:33 [From Adderall] hydrocodone bitartrate Allergy Unknown Verified 01/23/23 18:33 [From Vicodin] ziprasidone HCl [From Geodon] Allergy Unknown Verified 01/23/23 18:33 ziprasidone mesylate Allergy Unknown Verified 01/23/23 18:33 [From Geodon] acetaminophen [From Tylenol] AdvReac Unknown UPSET Verified 01/23/23 18:33 STOMACH Review of Systems ROS Statement: Those systems with pertinent positive or pertinent negative responses have been documented in the HPI. ROS Other: All systems not noted in ROS Statement are negative. Past Medical History Past Medical History: Asthma, Osteoarthritis (OA) Additional Past Medical History / Comment(s): cerebral cyst, hypoglycemia, dent in chest per pt , degenerative disc disease, vertigo History of Any Multi-Drug Resistant Organisms: None Reported Past Surgical History: No Surgical Hx Reported Past Psychological History: ADD/ADHD, Depression, Schizoaffective Disorder, Schizophrenia Smoking Status: Current every day smoker, Vaper Past Alcohol Use History: Occasional Past Drug Use History: Marijuana General Exam Limitations: no limitations General appearance: alert, in no apparent distress Head exam: Present: atraumatic, normocephalic Eye exam: Present: normal appearance. Absent: scleral icterus, conjunctival injection, periorbital swelling, periorbital tenderness ENT exam: Present: normal oropharynx, mucous membranes moist Neck exam: Present: full ROM. Absent: tenderness, meningismus, lymphadenopathy Respiratory exam: Absent: respiratory distress, accessory muscle use Cardiovascular Exam: Present: regular rate GI/Abdominal exam: Present: soft. Absent: distended, tenderness, guarding, rebound, rigid Extremities exam: Present: full ROM, normal capillary refill. Absent: pedal edema Neurological exam: Present: alert, oriented X3 Psychiatric exam: Present: normal affect, normal mood Skin exam: Present: warm, dry, normal color. Absent: cyanosis, diaphoretic, petechiae, pallor Course Vital Signs 01/23/23 01/23/23 18:31 22:04 Temperature 98.5 F Pulse Rate 81 57 L Respiratory 20 16 Rate Blood Pressure 127/69 136/93 O2 Sat by Pulse 97 98 Oximetry Medical Decision Making - Medical Decision Making Patient was sent by Dr. Wyman for elevated white blood cell count of 21. abdomen soft and nontender. Patient has no other complaints at this time. He states he is being scheduled to see a supply chain systems manager for an endoscopy as he's been having abdominal pain for the past couple of months with soft stools or diarrhea. Denies any rectal bleeding. No vomiting or fevers. CT abdomen and pelvis was performed on 12/24/2022 showing a normal appendix abnormality in the abdomen and pelvis mild subsegmental atelectasis lung bases. White blood cell count is 12.6. Hemoglobin and hematocrit are stable. Urinalysis is negative. Abdomen is soft nontender. Patient was discharged home to follow up with his primary care doctor. He is agreeable to this plan of care. Case discussed with Dr. Melgoza. Was pt. sent in by a medical professional or institution (, PA, [employer], urgent care, hospital, or custodial...) When possible be specific @ PCP Dr Wyman Did you speak to anyone other than the patient for history (EMS, parent, family, police, friend...)? What history was obtained from this source @ -[No] Did you review nursing and triage notes (agree or disagree)? Why? @ -[I reviewed and agree with nursing and triage notes] Were old charts reviewed (outside hosp., previous admission, EMS record, old EKG, old radiological studies, urgent care reports/EKG's, custodial records)? Report findings @ yes as above CT Differential Diagnosis (chest pain, altered mental status, abdominal pain women, abdominal pain men, vaginal bleeding, weakness, fever, dyspnea, syncope, headache, dizziness, GI bleed, back pain, seizure, CVA, palpatations, mental he alth, musculoskeletal)? @ encounter for reevaluation of white blood cell count EKG interpreted by me (3pts min.). @ -n/a X-rays interpreted by me (1pt min.). @ -[None done] CT interpreted by me (1pt min.). @ -[None done] U/S interpreted by me (1pt. min.). @ -[None done] What testing was considered but not performed or refused? (CT, X-rays, U/S, labs)? Why? @ -[None] What meds were considered but not given or refused? Why? @ -[None] Did you discuss the management of the patient with other professionals (professionals i.e. , PA, [employer], lab, RT, psych nurse, geriatric social work professor, dust operator, teacher, inspectors and regulatory officers, counseling case manager)? Give summary @ -[No] Was smoking cessation discussed for >3mins.? @ -[No] Was critical care preformed (if so, how long)? @ -[No] Were there social determinants of health that impacted care today? How? (Homelessness, low income, unemployed, alcoholism, drug addiction, transportation, low edu. Level, literacy, decrease access to med. care, alf, rehab)? @ -[No] Was there de-escalation of care discussed even if they declined (Discuss DNR or withdrawal of care, Hospice)? DNR status @ -[No] What co-morbidities impacted this encounter? (DM, HTN, Smoking, COPD, CAD, Cancer, CVA, ARF, Chemo, Hep., AIDS, mental health diagnosis, sleep apnea, morbid obesity)? @ -asthma Was patient admitted / discharged? Hospital course, mention meds given and route, prescriptions, significant lab abnormalities, going to OR and other pertinent info. @ discharged Undiagnosed new problem with uncertain prognosis? @ -[No] Drug Therapy requiring intensive monitoring for toxicity (Heparin, Nitro, Insulin, Cardizem)? @ -[No] Were any procedures done? @ -[No] Diagnosis/symptom? @ -normal exam Acute, or Chronic, or Acute on Chronic? @ -[default] Uncomplicated (without systemic symptoms) or Complicated (systemic symptoms)? @ -uncomplicated Side effects of treatment? @ -[No] Exacerbation, Progression, or Severe Exacerbation? @ -[No] Poses a threat to life or bodily function? How? (Chest pain, [place], MT, pneumonia, PE, COPD, DKA, ARF, appy, cholecystitis, CVA, Diverticulitis, Homicidal, Suicidal, threat to staff... and all critical care pts) @ -[No] - Lab Data Result diagrams: 01/23/23 19:38 01/23/23 19:38 Lab Results 01/23/23 01/23/23 01/23/23 Range/Units 19:38 19:38 19:43 WBC 12.6 H (3.8-10.6) k/uL RBC 5.22 (4.30-5.90) m/uL Hgb 16.0 (13.0-17.5) gm/dL Hct 46.6 (39.0-53.0) % MCV 89.2 (80.0-100.0) fL MCH 30.7 (25.0-35.0) pg MCHC 34.5 (31.0-37.0) g/dL RDW 12.8 (11.5-15.5) % Plt Count 313 (150-450) k/uL MPV 8.4 Neutrophils % 74 % Lymphocytes % 17 % Monocytes % 5 % Eosinophils % 3 % Basophils % 0 % Neutrophils # 9.3 H (1.3-7.7) k/uL Lymphocytes # 2.1 (1.0-4.8) k/uL Monocytes # 0.6 (0-1.0) k/uL Eosinophils # 0.4 (0-0.7) k/uL Basophils # 0.0 (0-0.2) k/uL Sodium 137 (137-145) mmol/L Potassium 4.5 (3.5-5.1) mmol/L Chloride 102 (98-107) mmol/L Carbon Dioxide 27 (22-30) mmol/L Anion Gap 8 mmol/L BUN 9 (9-20) mg/dL Creatinine 0.73 (0.66-1.25) mg/dL Est GFR (CKD-EPI)AfAm >90 (>60 ml/min/1.73 sqM) Est GFR (CKD-EPI)NonAf >90 (>60 ml/min/1.73 sqM) Glucose 72 L (74-99) mg/dL Plasma Lactic Acid Armando 0.6 L (0.7-2.0) mmol/L Calcium 9.3 (8.4-10.2) mg/dL Magnesium 2.3 (1.6-2.3) mg/dL Total Bilirubin 0.5 (0.2-1.3) mg/dL AST 17 (17-59) U/L ALT 19 (4-49) U/L Alkaline Phosphatase 61 (38-126) U/L Total Protein 7.3 (6.3-8.2) g/dL Albumin 4.6 (3.5-5.0) g/dL Amylase 77 (30-110) U/L Lipase 58 (23-300) U/L Urine Color Urine Appearance (Clear) Urine pH (5.0-8.0) Ur Specific Morgan (1.001-1.035) Urine Protein (Negative) Urine Glucose (UA) (Negative) Urine Ketones (Negative) Urine Blood (Negative) Urine Nitrite (Negative) Urine Bilirubin (Negative) Urine Urobilinogen (<2.0) mg/dL Ur Leukocyte Esterase (Negative) 01/23/23 Range/Units 20:58 WBC (3.8-10.6) k/uL RBC (4.30-5.90) m/uL Hgb (13.0-17.5) gm/dL Hct (39.0-53.0) % MCV (80.0-100.0) fL MCH (25.0-35.0) pg MCHC (31.0-37.0) g/dL RDW (11.5-15.5) % Plt Count (150-450) k/uL MPV Neutrophils % % Lymphocytes % % Monocytes % % Eosinophils % % Basophils % % Neutrophils # (1.3-7.7) k/uL Lymphocytes # (1.0-4.8) k/uL Monocytes # (0-1.0) k/uL Eosinophils # (0-0.7) k/uL Basophils # (0-0.2) k/uL Sodium (137-145) mmol/L Potassium (3.5-5.1) mmol/L Chloride (98-107) mmol/L Carbon Dioxide (22-30) mmol/L Anion Gap mmol/L BUN (9-20) mg/dL Creatinine (0.66-1.25) mg/dL Est GFR (CKD-EPI)AfAm (>60 ml/min/1.73 sqM) Est GFR (CKD-EPI)NonAf (>60 ml/min/1.73 sqM) Glucose (74-99) mg/dL Plasma Lactic Acid Armando (0.7-2.0) mmol/L Calcium (8.4-10.2) mg/dL Magnesium (1.6-2.3) mg/dL Total Bilirubin (0.2-1.3) mg/dL AST (17-59) U/L ALT (4-49) U/L Alkaline Phosphatase (38-126) U/L Total Protein (6.3-8.2) g/dL Albumin (3.5-5.0) g/dL Amylase (30-110) U/L Lipase (23-300) U/L Urine Color Yellow Urine Appearance Clear (Clear) Urine pH 6.0 (5.0-8.0) Ur Specific Morgan 1.018 (1.001-1.035) Urine Protein Trace H (Negative) Urine Glucose (UA) Negative (Negative) Urine Ketones Negative (Negative) Urine Blood Negative (Negative) Urine Nitrite Negative (Negative) Urine Bilirubin Negative (Negative) Urine Urobilinogen 2.0 (<2.0) mg/dL Ur Leukocyte Esterase Negative (Negative) Disposition Clinical Impression: Encounter for laboratory test Disposition: HOME SELF-CARE Condition: Good Instructions (If sedation given, give patient instructions): Leukocytosis (ED) Additional Instructions: Follow-up with the primary care doctor on Thursday. Return to the emergency room with any new or concerning symptoms. Is patient prescribed a controlled substance at d/c from ED?: No Referrals: Zamzam Shook MD [Primary Care Provider] - 1-2 days Time of Disposition: 21:52
[2023-01-23 20:05] LABS: Basophils % (A) 0 %; Eosinophils # (A) 0.4 k/uL (0-0.7); Eosinophils % (A) 3 %; HCT 46.6 % (39.0-53.0); Lymphocytes # (A) 2.1 k/uL (1.0-4.8); Lymphocytes % (A) 17 %; MCH 30.7 pg (25.0-35.0); MCHC 34.5 g/dL (31.0-37.0); MCV 89.2 fL (80.0-100.0); Mean Platelet Volume 8.4; Monocytes # (A) 0.6 k/uL (0-1.0); Monocytes % (A) 5 %; Neutrophils # (A) 9.3 k/uL (1.3-7.7); Neutrophils % (A) 74 %; Platelet Count 313 k/uL (150-450); RBC 5.22 m/uL (4.30-5.90); RDW 12.8 % (11.5-15.5); WBC 12.6 k/uL (3.8-10.6)
[2023-01-23 20:11] LABS: ALT 19 U/L (4-49); AST 17 U/L (17-59); African American GFR (CKD) >90 (>60 ml/min/1.73 sqM); Albumin 4.6 g/dL (3.5-5.0); Alkaline Phosphatase 61 U/L (38-126); Amylase 77 U/L (30-110); Anion Gap 8 mmol/L; Blood Urea Nitrogen 9 mg/dL (9-20); Calcium 9.3 mg/dL (8.4-10.2); Carbon Dioxide 27 mmol/L (22-30); Chloride 102 mmol/L (98-107); Glucose 72 mg/dL (74-99); Lipase 58 U/L (23-300); Magnesium 2.3 mg/dL (1.6-2.3); Non-African American GFR(CKD) >90 (>60 ml/min/1.73 sqM); Potassium 4.5 mmol/L (3.5-5.1); Sodium 137 mmol/L (137-145); Total Bilirubin 0.5 mg/dL (0.2-1.3); Total Protein 7.3 g/dL (6.3-8.2)
[2023-01-23 21:08] LABS: Appearance,Urine Clear (Clear); Bilirubin,Urine Negative (Negative); Blood,Urine Negative (Negative); Color,Urine Yellow; Glucose,Urine (UA) Negative (Negative); Ketones,Urine Negative (Negative); Leukocyte Esterase,Urine Negative (Negative); Nitrite,Urine Negative (Negative); Protein,Urine Trace (Negative); Specific Gravity,Urine 1.018 (1.001-1.035)
[2023-01-23 22:06] VITALS: BP 136/93; PULSE 57; RESP 16
== END 2023-01-23 22:04 | disposition home or self-care (01) ==
LOC: EC 17:45
DX: Z00.00 Encounter for general adult medical examination without abnormal findings (principal); J45.909 Unspecified asthma, uncomplicated; M19.90 Unspecified osteoarthritis, unspecified site; F17.290 Nicotine dependence, other tobacco product, uncomplicated; F12.90 Cannabis use, unspecified, uncomplicated; Z88.8 Allergy status to other drugs, medicaments and biological substances
CPT/HCPCS: 36415; 80053; 82150; 83605; 83690; 83735; 85025; 81003; 99284; 96374; J1885

== ENCOUNTER 2023-03-23 15:59 | Emergency (ER) | payer OTHER ==
[2023-03-23 16:08] VITALS: TEMP 98.1
--- NOTE | 2023-03-23 17:21 | CT ---
EXAMINATION TYPE: CT brain wo con DATE OF EXAM: 03/23/2023 COMPARISON: Prior CT brain August 17, 2022 HISTORY: dizziness and headache. hx of cerebral cyst CT DLP: 1169.4 mGycm. Automated Exposure Control for Dose Reduction was Utilized. TECHNIQUE: CT scan of the head is performed without contrast. FINDINGS: There is no acute intracranial hemorrhage, mass effect, or midline shift identified. The ventricles and sulci are within normal limits in size. Large left frontal CSF prominence suspicious for arachnoid cyst measuring 6.9 x 4.3 cm axial image 47 is redemonstrated. Mild to moderate patchy o pacification of the ethmoid sinuses bilaterally current study. IMPRESSION: No acute intracranial hemorrhage or midline shift is seen. New acute ethmoid sinusitis.
--- NOTE | 2023-03-23 17:52 | ED ---
General Adult HPI - General Source: patient Mode of arrival: ambulatory Limitations: no limitations <Aziza Mace - Last Filed: 03/23/23 17:48> <Bailey Garsia - Last Filed: 03/23/23 21:33> - General Chief complaint: Dizziness Stated complaint: Dizziness Time Seen by Provider: 03/23/23 17:49 - History of Present Illness Initial comments: 32-year-old male with a past medical history significant for subarachnoid cyst presents the emergency department with a chief complaint dizziness. Patient reports he was at work today and felt a sudden onset of dizziness, lightheadedness and feeling warm. He denies any known syncopal episode. He is reporting a headache at the time of quick note evaluation (Aziza Mace) Patient is a 32-year-old male presenting with chief complaint of syncope. Patient states that he was at work when he felt very warm. He then began fe eling dizzy and had some tunnel vision as well as tinnitus. At this time he admits to headache. He denies any neck pain. No nausea or vomiting. No chest pain, difficulty breathing, palpitations. No abdominal pain. No dizziness at this time. No numbness or tingling at this time. Patient states that it is he feels like he is returning to his baseline. (Bailey Garsia) - Related Data Home Medications Medication Instructions Recorded Confirmed Ergocalciferol (Vitamin D2) 1,250 mcg PO WE 03/23/23 03/23/23 [Drisdol (50,000 Iu)] Ibuprofen [Motrin] 600 mg PO TID PRN 03/23/23 03/23/23 Allergies Allergy/AdvReac Type Severity Reaction Status Date / Time amphetamine aspartate Allergy Unknown Verified 03/23/23 19:46 [From Adderall] amphetamine sulfate Allergy Unknown Verified 03/23/23 19:46 [From Adderall] codeine Allergy Unknown Verified 03/23/23 19:46 dextroamphetamine saccharate Allergy Unknown Verified 03/23/23 19:46 [From Adderall] dextroamphetamine sulfate Allergy Unknown Verified 03/23/23 19:46 [From Adderall] hydrocodone bitartrate Allergy Unknown Verified 03/23/23 19:46 [From Vicodin] ziprasidone HCl [From Geodon] Allergy Unknown Verified 03/23/23 19:46 ziprasidone mesylate Allergy Unknown Verified 03/23/23 19:46 [From Geodon] acetaminophen [From Tylenol] AdvReac Unknown UPSET Verified 03/23/23 19:46 STOMACH Review of Systems ROS Other: All systems not noted in ROS Statement are negative. <Aziza Mace - Last Filed: 03/23/23 17:48> ROS Other: All systems not noted in ROS Statement are negative. <Bailey Garsia - Last Filed: 03/23/23 21:33> ROS Statement: Those systems with pertinent positive or pertinent negative responses have been documented in the HPI. Past Medical History Past Medical History: Asthma, Osteoarthritis (OA) Additional Past Medical History / Comment(s): cerebral cyst, hypoglycemia, dent in chest per pt , degenerative disc disease, vertigo History of Any Multi-Drug Resistant Organisms: None Reported Past Surgical History: No Surgical Hx Reported Past Psychological History: ADD/ADHD, Depression, Schizoaffective Disorder, Schizophrenia Smoking Status: Current every day smoker, Vaper Past Alcohol Use History: Occasional Past Drug Use History: Marijuana <Aziza Mace - Last Filed: 03/23/23 17:48> General Exam Limitations: no limitations <Aziza Mace - Last Filed: 03/23/23 17:48> Limitations: no limitations General appearance: alert, in no apparent distress Head exam: Present: atraumatic, normocephalic, normal inspection Eye exam: Present: normal appearance, PERRL, EOMI. Absent: scleral icterus, periorbital swelling Neck exam: Present: normal inspection, full ROM. Absent: tenderness Respiratory exam: Present: normal lung sounds bilaterally. Absent: respiratory distress, wheezes, rales, rhonchi, stridor Cardiovascular Exam: Present: regular rate, normal rhythm, normal heart sounds. Absent: systolic murmur, diastolic murmur, rubs, gallop, clicks Neurological exam: Present: alert, oriented X3, CN II-XII intact Expanded Patient oriented to: Present: person, place, time Speech: Present: fluid speech Cranial nerves: EOM's Intact: Normal Eye Response: (4) open spontaneously Motor Response: (6) obeys commands Verbal Response: (5) oriented [place] Total: 15 Psychiatric exam: Present: normal affect, normal mood Skin exam: Present: warm, dry, intact, normal color. Absent: rash <Bailey aGrsia - Last Filed: 03/23/23 21:33> - General Exam Comments Initial Comments: Visual Physical Exam Vital signs reviewed General: Well-appearing, nontoxic, no acute distress. Head: Normocephalic, atraumatic Eyes: PERRLA, EOMI ENT: Airway patent Chest: Nonlabored breathing Skin: No visual rash, normal skin tone Neuro: Alert and oriented 3 Musculoskeletal: No gross abnormalities (Aziza Mace) Course Vital Signs 03/23/23 03/23/23 03/23/23 16:03 19:49 20:27 Temperature 98.1 F Pulse Rate 70 70 Pulse Rate [ 60 Left Pulse Oximetery] Respiratory 17 16 Rate Blood Pressure 119/62 111/53 Blood Pressure [Right Arm Sitting] Blood Pressure [Right Arm Standing] Blood Pressure 126/71 [Right Arm Supine] O2 Sat by Pulse 96 97 Oximetry 03/23/23 03/23/23 20:28 20:29 Temperature Pulse Rate Pulse Rate [ 70 84 Left Pulse Oximetery] Respiratory Rate Blood Pressure Blood Pressure 117/68 [Right Arm Sitting] Blood Pressure 100/60 [Right Arm Standing] Blood Pressure [Right Arm Supine] O2 Sat by Pulse Oximetry EKG Findings - EKG Comments: EKG Findings:: Sinus rhythm with sinus arrhythmia. Ventricular rate 68. VA interval 176. QRS 88. QT 365. QTc 381. Normal axis no ischemic changes. <Bailey Garsia - Last Filed: 03/23/23 21:33> Medical Decision Making - Lab Data Result diagrams: 03/23/23 19:26 03/23/23 19:26 <Bailey Garsia - Last Filed: 03/23/23 21:33> - Medical Decision Making Was pt. sent in by a medical professional or institution (, PA, MEDICAL SUPERVISOR, urgent care, hospital, or [place] health care facility...) When possible be specific @ -No Did you speak to anyone other than the patient for history (EMS, parent, family, police, friend...)? What history was obtained from this source @ -No Did you review nursing and triage notes (agree or disagree)? Why? @ -Reviewed the triage note and agree with the following exception, patient reports that he did have a syncopal episode Were old charts reviewed (outside hosp., previous admission, EMS record, old EKG, old radiological studies, urgent care reports/EKG's, [place] health care facility records)? Report findings @ -No old charts were reviewed Differential Diagnosis (chest pain, altered mental status, abdominal pain women, abdominal pain men, vaginal bleeding, weakness, fever, dyspnea, syncope, headache, dizziness, GI bleed, back pain, seizure, CVA, palpatations, mental health, musculoskeletal)? @ -MDM Differential Syncope: Valvular disease, hypertrophic cardiomyopathy, pulmonary embolism, tamponade, tachycardia, bradycardia, ND, hypovolemia, hemorrhage, dissection, anemia, intracranial hemorrhage, seizure, hypoglycemia, carbon monoxide poisoning this is not meant to be an all-inclusive list. EKG interpreted by me (3pts min.). @ -As above X-rays interpreted by me (1pt min.). @ -Chest x-ray shows no acute process CT interpreted by me (1pt min.). @ -CT shows no acute intracranial process U/S interpreted by me (1pt. min.). @ -None done What testing was considered but not performed or refused? (CT, X-rays, U/S, labs)? Why? @ -None What meds were considered but not given or refused? Why? @ -None Did you discuss the management of the patient with other professionals (professionals i.e. , PA, MEDICAL SUPERVISOR, lab, RT, psych nurse, social welfare clerk, garment parts cutter machine, teacher, zoology technical officer, case management director)? Give summary @ -No Was smoking cessation discussed for >3mins.? @ -No Was critical care preformed (if so, how long)? @ -No Were there social determinants of health that impacted care today? How? (Homelessness, low income, unemployed, alcoholism, drug addiction, transportation, low edu. Level, literacy, decrease access to med. care, assisted, rehab)? @ -No Was there de-escalation of care discussed even if they declined (Discuss DNR or withdrawal of care, Hospice)? DNR status @ -No What co-morbidities impacted this encounter? (DM, HTN, Smoking, COPD, CAD, Cancer, CVA, ARF, Chemo, Hep., AIDS, mental health diagnosis, sleep apnea, mo rbid obesity)? @ -None Was patient admitted / discharged? Hospital course, mention meds given and route, prescriptions, significant lab abnormalities, going to OR and other pertinent info. @ -Patient is a 32-year-old male presenting with chief complaint of syncopal episode at work. States that he was feeling overheated as well as dizzy with some vision and hearing changes. States that he feels well at this time. Physical examination is unremarkable, no focal neurological deficits. Heart and lungs are clear to auscultation. No chest pain or difficulty breathing. WBC 12.0. CMP is essentially unremarkable. Troponin is negative. Urine shows no infectious process or bleeding. Patient is negative for influenza, RSV, Covid. CT of the brain shows no acute process. Orthostatic vitals are negative. On reassessment patient reports that he is continuing to feel well. I discussed with him the findings and educated him on vasovagal syncope. Educated on alarms symptoms that should prompt immediate reevaluation. Follow-up with PCP. Report back to ER with any new or worsening symptoms. Discussed return parameters and answered all questions. Patient conveyed verbal understanding and agreed to the plan. I discussed this case in detail with my attending Dr. Hidalgo Undiagnosed new problem with uncertain prognosis? @ -No Drug Therapy requiring intensive monitoring for toxicity (Heparin, Nitro, Insulin, Cardizem)? @ -No Were any procedures done? @ -No Diagnosis/symptom? @ -Vasovagal Syncope Acute, or Chronic, or Acute on Chronic? @ -Acute Uncomplicated (without systemic symptoms) or Complicated (systemic symptoms)? @ -Uncomplicated Side effects of treatment? @ -No Exacerbation, Progression, or Severe Exacerbation? @ -No Poses a threat to life or bodily function? How? (Chest pain, USA, ND, pneumonia, PE, COPD, DKA, ARF, appy, cholecystitis, CVA, Diverticulitis, Homicidal, [place] icidal, threat to staff... and all critical care pts) @ -Unlikely at this time (Bailey Garsia) - Lab Data Lab Results 03/23/23 03/23/23 03/23/23 Range/Units 19:26 19:26 19:26 WBC 12.0 H (3.8-10.6) k/uL RBC 5.29 (4.30-5.90) m/uL Hgb 15.9 (13.0-17.5) gm/dL Hct 47.2 (39.0-53.0) % MCV 89.1 (80.0-100.0) fL MCH 30.1 (25.0-35.0) pg MCHC 33.7 (31.0-37.0) g/dL RDW 13.3 (11.5-15.5) % Plt Count 325 (150-450) k/uL MPV 8.7 Neutrophils % 71 % Lymphocytes % 20 % Monocytes % 4 % Eosinophils % 3 % Basophils % 0 % Neutrophils # 8.5 H (1.3-7.7) k/uL Lymphocytes # 2.4 (1.0-4.8) k/uL Monocytes # 0.5 (0-1.0) k/uL Eosinophils # 0.4 (0-0.7) k/uL Basophils # 0.1 (0-0.2) k/uL Sodium 137 (137-145) mmol/L Potassium 4.5 (3.5-5.1) mmol/L Chloride 103 (98-107) mmol/L Carbon Dioxide 26 (22-30) mmol/L Anion Gap 8 mmol/L BUN 10 (9-20) mg/dL Creatinine 0.65 L (0.66-1.25) mg/dL Est GFR (CKD-EPI)AfAm >90 (>60 ml/min/1.73 sqM) Est GFR (CKD-EPI)NonAf >90 (>60 ml/min/1.73 sqM) Glucose 89 (74-99) mg/dL POC Glucose (mg/dL) (70-110) mg/dL POC Glu [employer] G[employer] ID Calcium 9.6 (8.4-10.2) mg/dL Total Bilirubin 0.3 (0.2-1.3) mg/dL AST 18 (17-59) U/L ALT 17 (4-49) U/L Alkaline Phosphatase 69 (38-126) U/L Troponin I <0.012 (0.000-0.034) ng/mL Total Protein 7.1 (6.3-8.2) g/dL Albumin 4.3 (3.5-5.0) g/dL Urine Color Urine Appearance (Clear) Urine pH (5.0-8.0) Ur Specific [place] (1.001-1.035) Urine Protein (Negative) Urine Glucose (UA) (Negative) Urine Ketones (Negative) Urine Blood (Negative) Urine Nitrite (Negative) Urine Bilirubin (Negative) Urine Urobilinogen (<2.0) mg/dL Ur Leukocyte Esterase (Negative) Influenza Type A (PCR) (Not Detectd) Influenza Type B (PCR) (Not Detectd) RSV (PCR) (Not Detectd) SARS-CoV-2 (PCR) (Not Detectd) 03/23/23 03/23/23 03/23/23 Range/Units 19:26 19:26 19:47 WBC (3.8-10.6) k/uL RBC (4.30-5.90) m/uL Hgb (13.0-17.5) gm/dL Hct (39.0-53.0) % MCV (80.0-100.0) fL MCH (25.0-35.0) pg MCHC (31.0-37.0) g/dL RDW (11.5-15.5) % Plt Count (150-450) k/uL MPV Neutrophils % % Lymphocytes % % Monocytes % % Eosinophils % % Basophils % % Neutrophils # (1.3-7.7) k/uL Lymphocytes # (1.0-4.8) k/uL Monocytes # (0-1.0) k/uL Eosinophils # (0-0.7) k/uL Basophils # (0-0.2) k/uL Sodium (137-145) mmol/L Potassium (3.5-5.1) mmol/L Chloride (98-107) mmol/L Carbon Dioxide (22-30) mmol/L Anion Gap mmol/L BUN (9-20) mg/dL Creatinine (0.66-1.25) mg/dL Est GFR (CKD-EPI)AfAm (>60 ml/min/1.73 sqM) Est GFR (CKD-EPI)NonAf (>60 ml/min/1.73 sqM) Glucose (74-99) mg/dL POC Glucose (mg/dL) 88 (70-110) mg/dL POC Glu [employer] ID Amelia Maldonado Calcium (8.4-10.2) mg/dL Total Bilirubin (0.2-1.3) mg/dL AST (17-59) U/L ALT (4-49) U/L Alkaline Phosphatase (38-126) U/L Troponin I (0.000-0.034) ng/mL Total Protein (6.3-8.2) g/dL Albumin (3.5-5.0) g/dL Urine Color Yellow Urine Appearance Clear (Clear) Urine pH 5.5 (5.0-8.0) Ur Specific [place] 1.016 (1.001-1.035) Urine Protein Negative (Negative) Urine Glucose (UA) Negative (Negative) Urine Ketones Negative (Negative) Urine Blood Negative (Negative) Urine Nitrite Negative (Negative) Urine Bilirubin Negative (Negative) Urine Urobilinogen <2.0 (<2.0) mg/dL Ur Leukocyte Esterase Negative (Negative) Influenza Type A (PCR) Not Detected (Not Detectd) Influenza Type B (PCR) Not Detected (Not Detectd) RSV (PCR) Not Detected (Not Detectd) SARS-CoV-2 (PCR) Not Detected (Not Detectd) Disposition <Aziza Mace - Last Filed: 03/23/23 17:48> Is patient prescribed a controlled substance at d/c from ED?: No Time of Disposition: 21:08 <Bailey Garsia - Last Filed: 03/23/23 21:33> Clinical Impression: Vasovagal syncope Disposition: HOME SELF-CARE Condition: Good Instructions (If sedation given, give patient instructions): Syncope (ED) Additional Instructions: Follow-up with PCP. Report back to ER with any new or worsening symptoms. Referrals: Zamzam Shoko MD [Primary Care Provider] - 1-2 days
[2023-03-23 19:49] LABS: Glucose,Whole Blood 88 mg/dL (70-110)
[2023-03-23 19:50] VITALS: RESP 16
[2023-03-23 20:03] LABS: Basophils # (A) 0.1 k/uL (0-0.2); Basophils % (A) 0 %; Eosinophils # (A) 0.4 k/uL (0-0.7); Eosinophils % (A) 3 %; HCT 47.2 % (39.0-53.0); HGB 15.9 gm/dL (13.0-17.5); Lymphocytes # (A) 2.4 k/uL (1.0-4.8); Lymphocytes % (A) 20 %; MCH 30.1 pg (25.0-35.0); MCHC 33.7 g/dL (31.0-37.0); MCV 89.1 fL (80.0-100.0); Mean Platelet Volume 8.7; Monocytes # (A) 0.5 k/uL (0-1.0); Monocytes % (A) 4 %; Neutrophils # (A) 8.5 k/uL (1.3-7.7); Neutrophils % (A) 71 %; Platelet Count 325 k/uL (150-450); RBC 5.29 m/uL (4.30-5.90); RDW 13.3 % (11.5-15.5)
[2023-03-23 20:07] LABS: ALT 17 U/L (4-49); AST 18 U/L (17-59); African American GFR (CKD) >90 (>60 ml/min/1.73 sqM); Albumin 4.3 g/dL (3.5-5.0); Alkaline Phosphatase 69 U/L (38-126); Anion Gap 8 mmol/L; Blood Urea Nitrogen 10 mg/dL (9-20); Calcium 9.6 mg/dL (8.4-10.2); Carbon Dioxide 26 mmol/L (22-30); Chloride 103 mmol/L (98-107); Glucose 89 mg/dL (74-99); Non-African American GFR(CKD) >90 (>60 ml/min/1.73 sqM); Potassium 4.5 mmol/L (3.5-5.1); Sodium 137 mmol/L (137-145); Total Bilirubin 0.3 mg/dL (0.2-1.3); Total Protein 7.1 g/dL (6.3-8.2)
[2023-03-23 20:11] LABS: Appearance,Urine Clear (Clear); Bilirubin,Urine Negative (Negative); Blood,Urine Negative (Negative); Color,Urine Yellow; Glucose,Urine (UA) Negative (Negative); Ketones,Urine Negative (Negative); Leukocyte Esterase,Urine Negative (Negative); Nitrite,Urine Negative (Negative); PH, Urine 5.5 (5.0-8.0); Protein,Urine Negative (Negative); Specific Gravity,Urine 1.016 (1.001-1.035); Urobilinogen,Urine <2.0 mg/dL (<2.0)
[2023-03-23 20:30] VITALS: BP 100/60; PULSE 84
== END 2023-03-23 21:26 | disposition home or self-care (01) ==
LOC: EC 15:59
DX: R55 Syncope and collapse (principal); J45.909 Unspecified asthma, uncomplicated; F17.290 Nicotine dependence, other tobacco product, uncomplicated; F12.90 Cannabis use, unspecified, uncomplicated; Z20.822 Contact with and (suspected) exposure to COVID-19; Z88.5 Allergy status to narcotic agent; Z88.6 Allergy status to analgesic agent; Z88.8 Allergy status to other drugs, medicaments and biological substances
CPT/HCPCS: 36415; 70450; 80053; 81003; 84484; 85025; 87636; 93005; 99285

== ENCOUNTER 2023-09-22 12:50 | Emergency (ER) | payer OTHER ==
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
[2023-09-22 13:37] VITALS: TEMP 98.2
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
[2023-09-22 14:06] LABS: Basophils % (A) 0 %; Eosinophils # (A) 0.6 k/uL (0-0.7); Eosinophils % (A) 5 %; HCT 44.2 % (39.0-53.0); HGB 15.3 gm/dL (13.0-17.5); Lymphocytes # (A) 1.8 k/uL (1.0-4.8); Lymphocytes % (A) 15 %; MCH 30.9 pg (25.0-35.0); MCHC 34.5 g/dL (31.0-37.0); MCV 89.5 fL (80.0-100.0); Monocytes # (A) 0.6 k/uL (0-1.0); Monocytes % (A) 5 %; Neutrophils # (A) 8.8 k/uL (1.3-7.7); Neutrophils % (A) 73 %; Platelet Count 259 k/uL (150-450); RBC 4.93 m/uL (4.30-5.90); RDW 12.7 % (11.5-15.5)
[2023-09-22 14:17] LABS: Prothrombin Time 11.1 sec (10.0-12.5)
--- NOTE | 2023-09-22 14:22 | XR ---
EXAMINATION TYPE: XR chest 1V portable DATE OF EXAM: 09/22/2023 COMPARISON: NONE HISTORY: Pain TECHNIQUE: Single frontal view of the chest is obtained. FINDINGS: There is no focal air space opacity, pleural effusion, or pneumothorax seen. The cardiac silhouette size is within normal limits. The osseous structures are intact. IMPRESSION: No acute process.
[2023-09-22 14:23] LABS: ALT 26 U/L (4-49); AST 22 U/L (17-59); African American GFR (CKD) >90 (>60 ml/min/1.73 sqM); Albumin 4.1 g/dL (3.5-5.0); Alcohol <10 mg/dL; Alkaline Phosphatase 65 U/L (38-126); Anion Gap 10 mmol/L; Blood Urea Nitrogen 13 mg/dL (9-20); Calcium 9.4 mg/dL (8.4-10.2); Carbon Dioxide 24 mmol/L (22-30); Chloride 104 mmol/L (98-107); Glucose 89 mg/dL (74-99); Non-African American GFR(CKD) >90 (>60 ml/min/1.73 sqM); Potassium 4.4 mmol/L (3.5-5.1); Sodium 138 mmol/L (137-145); Total Bilirubin 0.5 mg/dL (0.2-1.3); Total Protein 6.7 g/dL (6.3-8.2)
--- NOTE | 2023-09-22 14:24 | XR ---
EXAMINATION TYPE: XR knee complete RT DATE OF EXAM: 09/22/2023 CLINICAL HISTORY: pain TECHNIQUE: Three views of the right knee are obtained. COMPARISON: 12/28/2016 FINDINGS: There is no acute fracture/dislocation. The tri-compartment joint spaces appear within no rmal limits. The overlying soft tissue appears unremarkable. IMPRESSION: There is no acute fracture or dislocation.ICD 10 NO FRACTURE, INITIAL EVALUATION
--- NOTE | 2023-09-22 14:25 | XR ---
EXAMINATION TYPE: XR pelvis AP view DATE OF EXAM: 09/22/2023 CLINICAL HISTORY: pain TECHNIQUE: Single view the pelvis is submitted. FINDINGS: No evidence for fracture, dislocation or bony lesion. Joint spaces are well-preserved. S I joints appear symmetric. IMPRESSION: 1. No acute fracture or dislocation seen. ICD 10 NO FRACTURE, INITIAL EVALUATION
[2023-09-22 16:10] VITALS: BP 116/72; PULSE 64; RESP 20
== END 2023-09-22 16:10 | disposition home or self-care (01) ==
LOC: EC 12:50
DX: M25.561 Pain in right knee (principal); J45.909 Unspecified asthma, uncomplicated; F12.90 Cannabis use, unspecified, uncomplicated; F17.290 Nicotine dependence, other tobacco product, uncomplicated; Z88.5 Allergy status to narcotic agent; Z88.6 Allergy status to analgesic agent; Z88.8 Allergy status to other drugs, medicaments and biological substances; V23.49XA Other motorcycle driver injured in collision with car, pick-up truck or van in traffic accident, initial encounter; Y92.410 Unspecified street and highway as the place of occurrence of the external cause
CPT/HCPCS: 36415; 70450; 71045; 72125; 72170; 80053; 80320; 85025; 85610; 85730; 99285

== ENCOUNTER 2024-01-25 19:58 | Emergency (ER) | payer OTHER ==
--- NOTE | 2024-01-25 20:28 | ED ---
General Adult HPI - General Chief complaint: Neck Pain/Injury Stated complaint: Neck Pain Time Seen by Provider: 01/25/24 20:15 Source: patient Mode of arrival: ambulatory Limitations: no limitations - History of Present Illness Initial comments: 33-year-old male with a past medical history significant for chronic neck pain and follows with Dr. Gomez of [facility] presenting to the ED with a chief complaint of neck pain. Patient states has been out of his medications including Fioricet and Lyrica over the past few weeks. Over this time has had some increasing neck pain. Reports that he called Dr. Gomez's office and had these medications refilled today. Has not taken his Lyrica yet today however has taken his Fioricet. Presenting to the ED today with some neck pain. No recent injury or trauma. Reports pain is burning in nature. Denies fever or chills. Secondary to the pain, patient reports she has developed some nausea. No chest pain shortness of breath. No abdominal pain. No other complaints at this time. - Related Data Home Medications Medication Instructions Recorded Confirmed Butalb/APAP/Caff 50-325-40Mg 1 tab PO BID PRN 09/22/23 09/22/23 [Fioricet 50-325-40] Cetirizine HCl 10 mg PO DAILY 09/22/23 09/22/23 Pregabalin [Lyrica] 75 mg PO BID 09/22/23 09/22/23 Previous Rx's Medication Instructions Recorded Ondansetron Odt [Zofran Odt] 4 mg PO Q8HR PRN #10 tab 01/25/24 Allergies Allergy/AdvReac Type Severity Reaction Status Date / Time amphetamine aspartate Allergy Unknown Verified 01/25/24 20:11 [From Adderall] amphetamine sulfate Allergy Unknown Verified 01/25/24 20:11 [From Adderall] codeine Allergy Unknown Verified 01/25/24 20:11 dextroamphetamine saccharate Allergy Unknown Verified 01/25/24 20:11 [From Adderall] dextroamphetamine sulfate Allergy Unknown Verified 01/25/24 20:11 [From Adderall] hydrocodone bitartrate Allergy Unknown Verified 01/25/24 20:11 [From Vicodin] ziprasidone HCl [From Geodon] Allergy Unknown Verified 01/25/24 20:11 ziprasidone mesylate Allergy Unknown Verified 01/25/24 20:11 [From Geodon] acetaminophen [From Tylenol] AdvReac Unknown UPSET Verified 01/25/24 20:11 STOMACH Review of Systems ROS Statement: Those systems with pertinent positive or pertinent negative responses have been documented in the HPI. ROS Other: All systems not noted in ROS Statement are negative. Past Medical History Past Medical History: Asthma Additional Past Medical History / Comment(s): cerebral cyst, hypoglycemia, dent in chest per pt , degenerative disc disease, vertigo History of Any Multi-Drug Resistant Organisms: None Reported Past Surgical History: No Surgical Hx Reported Past Psychological History: ADD/ADHD, Depression, Schizoaffective Disorder, Schizophrenia Smoking Status: Current every day smoker, Vaper Past Alcohol Use History: Occasional Past Drug Use History: Marijuana General Exam Limitations: no limitations General appearance: alert Head exam: Present: atraumatic, normocephalic Eye exam: Present: normal appearance Neck exam: Present: normal inspection, other (Negative Kernig and Brezinski sign. Patient does report reproduction of pain upon axial loading.) Respiratory exam: Present: normal lung sounds bilaterally Cardiovascular Exam: Present: regular rate, normal rhythm GI/Abdominal exam: Present: soft Extremities exam: Present: other (Strength and sensation equal and intact of bilateral upper extremities.) Neurological exam: Present: alert, oriented X3 Skin exam: Present: warm, dry Course Vital Signs 01/25/24 20:06 Temperature 98.5 F Pulse Rate 90 Respiratory 18 Rate Blood Pressure 123/77 O2 Sat by Pulse 97 Oximetry Medical Decision Making - Medical Decision Making Was pt. sent in by a medical professional or institution (, PA, BOARD FILLER, urgent care, hospital, or skilled nursing...) When possible be specific @ -No Did you speak to anyone other than the patient for history (EMS, parent, family, police, friend...)? What history was obtained from this source @ -No Did you review nursing and triage notes (agree or disagree)? Why? @ -I reviewed and agree with nursing and triage notes Were old charts reviewed (outside hosp., previous admission, EMS record, old EKG, old radiological studies, urgent care reports/EKG's, skilled nursing records)? Report findings @ -No old charts were reviewed Differential Diagnosis (chest pain, altered mental status, abdominal pain women, abdominal pain men, vaginal bleeding, weakness, fever, dyspnea, syncope, headache, dizziness, GI bleed, back pain, seizure, CVA, palpatations, mental health, musculoskeletal)? @ -Differential Back Pain: Strain, zoster, cauda equina syndrome, epidural abscess, vertebral osteomyelitis, discitis, fracture, subluxation, disc herniation, DJD, spinal stenosis, dissection, AAA, pancreatitis, peptic ulcer disease, pyelonephritis, kidney stone, this is not meant to be an all-inclusive list. EKG interpreted by me (3pts min.). @ -None X-rays interpreted by me (1pt min.). @ -X-ray cervical spine interpreted me which revealed no evidence of acute process. CT interpreted by me (1pt min.). @ -None done U/S interpreted by me (1pt. min.). @ -None done What testing was considered but not performed or refused? (CT, X-rays, U/S, labs)? Why? @ -None What meds were considered but not given or refused? Why? @ -None Did you discuss the management of the patient with other professionals (professionals i.e. , PA, BOARD FILLER, lab, RT, psych nurse, director social service, statistician mathematical, teacher, restoration officer, case operator)? Give summary @ -No Was smoking cessation discussed for >3mins.? @ -No Was critical care preformed (if so, how long)? @ -No Were there social determinants of health that impacted care today? How? (Homelessness, low income, unemployed, alcoholism, drug addiction, transportation, low edu. Level, literacy, decrease access to med. care, care home, rehab)? @ -No Was there de-escalation of care discussed even if they declined (Discuss DNR or withdrawal of care, Hospice)? DNR status @ -No What co-morbidities impacted this encounter? (DM, HTN, Smoking, COPD, CAD, Cancer, CVA, ARF, Chemo, Hep., AIDS, mental health diagnosis, sleep apnea, morbid obesity)? @ -None Was patient admitted / discharged? Hospital course, mention meds given and route, prescriptions, significant lab abnormalities, going to OR and other pertinent info. @ -Discharge 33-year-old male with a past medical history significant for chronic neck pain follows with Dr. Gomez presenting to the ED with chief complaint of neck pain. Patient reports he has been out of his usual pain medications for the past few weeks however was just able to have this refilled today. Due to not having medications patient reports worse than usual neck pain prompting presentation to the ED for further evaluation. Additionally notes secondary to neck pain has started to become nauseous. X-ray cervical spine revealed no evidence of acute process. Vital signs stable afebrile. Exam showed negative Kernig and Brezinski sign. Patient discharged home in stable condition with instructions to follow-up with Dr. Gomez. Discussed return precautions with patient who verbalized agreement. Undiagnosed new problem with uncertain prognosis? @ -No Drug Therapy requiring intensive monitoring for toxicity (Heparin, Nitro, Insulin, Cardizem)? @ -No Were any procedures done? @ -No Diagnosis/symptom? @ -Neck pain Acute, or Chronic, or Acute on Chronic? @ -Acute on chronic Uncomplicated (without systemic symptoms) or Complicated (systemic symptoms)? @ -Uncomplicated Side effects of treatment? @ -No Exacerbation, Progression, or Severe Exacerbation? @ -No Poses a threat to life or bodily function? How? (Chest pain, [place], [place], pneumonia, PE, COPD, DKA, ARF, appy, cholecystitis, CVA, Diverticulitis, Homicidal, Suicidal, threat to staff... and all critical care pts) @ -No Disposition Clinical Impression: Neck pain Disposition: HOME SELF-CARE Condition: Good Additional Instructions: Please return to the Emergency Department if symptoms worsen or any other concerns. Please follow-up with your PCP or Dr. Gomez. Prescriptions: Ondansetron Odt [Zofran Odt] 4 mg PO Q8HR PRN #10 tab PRN Reason: Nausea Is patient prescribed a controlled substance at d/c from ED?: No Referrals: Zamzam Shook MD [Primary Care Provider] - 1-2 days Time of Disposition: 22:45
[2024-01-25] MEDS: KETOROLAC 15 MG/ML 1 ML VIAL IM STA (20:52)
[2024-01-25] MEDS: ONDANSETRON ODT 4 MG TAB PO STA (21:00)
--- NOTE | 2024-01-25 22:28 | XR ---
EXAMINATION TYPE: XR cervical spine comp DATE OF EXAM: 01/25/2024 8:36 PM CLINICAL INDICATION:Male, 33 years old with history of neck pain; [facility] COMPARISON: None TECHNIQUE: The cervical spine was imaged in frontal, lateral, odontoid and bilateral oblique. FINDINGS: The osseous structures show normal alignment without evidence of an acute fracture. No significant ve rtebral body osteophytes or facet joint arthropathy. The intervertebral disk spaces are preserved. Pe dicles are intact. Soft tissues are within normal limits. The odontoid appears intact. IMPRESSION: No fracture or dislocation.
[2024-01-25] MEDS: ONDANSETRON 4 MG ODT STARTER PACK 2 TAB BTL PO STA (22:59)
[2024-01-25 23:15] VITALS: BP 117/68; PULSE 87; RESP 16; TEMP 98.2
== END 2024-01-25 23:09 | disposition home or self-care (01) ==
LOC: EC 19:58
DX: M54.2 Cervicalgia (principal); F17.290 Nicotine dependence, other tobacco product, uncomplicated; Z86.59 Personal history of other mental and behavioral disorders; Z88.5 Allergy status to narcotic agent; Z88.8 Allergy status to other drugs, medicaments and biological substances
CPT/HCPCS: 99283; 96372; 72050; J1885; S0119